=== PATIENT | male | born 1960 | race Caucasian/White ===

== ENCOUNTER → 2016-08-23 | Outpatient (CLI) | payer BC, MEDICARE ==
--- NOTE | 2016-08-23 10:43 | CT ---
EXAMINATION TYPE: CT abdomen pelvis wo con DATE OF EXAM: 08/23/2016 9:03 AM COMPARISON: 07/04/2015 INDICATION: Screening for third kidney transplant DLP: 1090 mGycm, Automated exposure control for dose reduction was used. CONTRAST: 0 mL of Omnipaque 300. Study performed with Oral Contrast TECHNIQUE: Axial images were obtained from above the diaphragm to the pubic rami in the axial plane a t 5 mm thick sections. Reconstructed images are reviewed on the computer in the coronal plane. FINDINGS: Limited CT sections are obtained the lung bases. There is pneumonitis type changes at the left lung base. This is a change from comparison.. Previous pleural effusions have resolved. CT ABDOMEN: Liver: There is a 1.2 x 3.0 cm calcified mass anterior to the right lobe of liver. This was present p reviously and appears stable. No suspicious intraparenchymal abnormalities evident. Spleen: Spleen appears enlarged measuring 17.7 cm in craniocaudal dimension. Pancreas: Normal Adrenal glands: The adrenal glands are normal. Gallbladder: Punctate gallstone is at the neck of the gallbladder. Kidneys: Left kidney is atrophic. Right kidney is absent. There is a transplant kidney within the lef t hemipelvis. This contains a 1.4 cm cyst measuring approximately 16 Hounsfield units. 0.4 cm calcifi cation is within the hilum. 0.2 and 0.3 cm calcification is within the mid transplant kidney. These c ould be related to vascular calcifications or nonobstructing renal stones. Reconstructed coronal plan e images these appear more related to vascular calcification. Some additional vascular calcification is at the splenic hilum. Perinephric stranding is present. Aorta: Vascular calcification is within the aorta. Vascular calcifications within the iliac vessels. Inferior vena cava: Normal. CT PELVIS: Sigmoid colon is somewhat thickened within its proximal portion. Correlate for colitis. Couple of div erticuli within the distal sigmoid colon. Small bowel loops distended with oral contrast are normal. Some mild wall thickening of the proximal ascending colon may be present. Transverse colon with contr ast appears unremarkable. There is a large cystic structure within the mesentery measuring 10.0 x 10.7 centimeters. This was pr esent previously and may be minimally diminished in size. Previous ascites has essentially resolved . There are loops of bowel which are incompletely distended or lack oral contrast limiting their evalu ation. Appendix: Not identified Urinary bladder: Decompressed with thickened wall can related to incomplete distention. Genitourinary structures: Prostate appears within normal limits. Osseous structures: No suspicious lytic or sclerotic lesions. Spondylolysis of bowel for may be prese nt. Facet degenerative changes are present L4-5 L5-S1. Degenerative disc changes are present L3-4. IMPRESSIONS: 1. Transplant kidney left hemipelvis with perinephric stranding. Vascular calcification appears to b e present without hydronephrosis. 2. Mesenteric cyst. 3. Resolution of previous ascites and pleural effusions. 4. Correlate for sigmoid colitis proximal portion of the sigmoid colon. 5. Punctate gallstone
== END | disposition home or self-care (01) ==
LOC: RADCTMAIN 06:53
PROVIDERS: ATTEND Nurse Practitioner Family
DX: Z01.818 Encounter for other preprocedural examination (principal); K80.20 Calculus of gallbladder without cholecystitis without obstruction; K66.8 Other specified disorders of peritoneum
CPT/HCPCS: 74176

== ENCOUNTER 2016-09-01 06:43 | Day surgery (SDC) | payer MEDICARE, BC ==
[2016-08-30 12:14] VITALS: BMI 25.0
[~2016-09-01 06:43] MED LIST: LACTATED RINGERS 1,000 ML IV SCH
[2016-09-01] MEDS ORDERED: LACTATED RINGERS 1,000 ML IV ONE (07:00)
[2016-09-01 07:13] VITALS: TEMP 97.3
[2016-09-01 07:19] LABS: Glucose,Whole Blood 141 mg/dL (75-99)
[2016-09-01] MEDS ORDERED: HYDROCORTISONE SUCCINATE 100 MG/2 ML VIAL IVP ONE (07:20)
[2016-09-01] MEDS ORDERED: HYDROCORTISONE SUCCINATE 100 MG/2 ML VIAL IV STA (07:23)
[2016-09-01] MEDS ORDERED: PROPOFOL 10 MG/ML 20 ML VIAL IV ONE (07:26)
--- NOTE | 2016-09-01 07:47 | P.PCN ---
Date of Procedure: 09/01/16 Procedure(s) Performed: BRIEF HISTORY: Patient is a 55-year-old pleasant white male, scheduled for an elective colonoscopy as a part of pretransplant kidney evaluation. He also has been complaining of change in bowel habits. He is asked coloscopy was done in 2014 and was noted to have severe medication-induced colitis. Presently the diarrhea has resolved however he has irregular bowel movements. PROCEDURE PERFORMED: Colonoscopy with biopsy. PREOPERATIVE DIAGNOSIS: Change in bowel habits and prekidney transplant evaluation. IV sedation per Anesthesia. PROCEDURE: After informed consent was obtained, the patient, was brought into the endoscopy unit. IV sedation was administered by Anesthesia under continuous monitoring. Digital rectal examination was normal. Initially the Olympus CF- 160 flexible video colonoscope was then inserted in the rectum, gradually advanced into the cecum without any difficulty. Careful examination was performed as the scope was gradually being withdrawn. Ileocecal valve and the appendiceal orifice were visualized and appeared normal. Prep was excellent. Mucosa of the cecum, ascending colon, transverse colon, appeared normal. In the descending colon there was a polyp that was removed by biopsy. The rest of the descending colon, sigmoid colon, and rectum appeared normal. Random biopsies were done from the ascending and descending colon to rule out colitis. Scattered sigmoid diverticulosis. Retroflexion was performed in the rectum and no lesions were seen. The patient tolerated the procedure well. IMPRESSION: 5 mm ascending colon polyp status post removal by biopsy. Rest of the colon appeared normal. Scattered sigmoid diverticulosis RECOMMENDATIONS: Findings of this examination were discussed with the patient as well as his family. He was advised to follow with the biopsy results. He can have a repeat colonoscopy in 5 years, based on the biopsy results.
[2016-09-01 07:50] VITALS: RESP 16
[2016-09-01 07:58] LABS: Glucose,Whole Blood 134 mg/dL (75-99)
[2016-09-01 08:16] VITALS: BP 91/53; PULSE 73
== END 2016-09-01 08:45 | disposition home or self-care (01) ==
LOC: ORWHC2ENDO 06:43
PROVIDERS: ATTEND Internal Medicine Gastroenterology
DX: Z01.818 Encounter for other preprocedural examination (principal); D12.4 Benign neoplasm of descending colon; K57.30 Diverticulosis of large intestine without perforation or abscess without bleeding; K63.89 Other specified diseases of intestine; K21.9 Gastro-esophageal reflux disease without esophagitis; Z87.891 Personal history of nicotine dependence; E11.9 Type 2 diabetes mellitus without complications; Z79.4 Long term (current) use of insulin; N28.9 Disorder of kidney and ureter, unspecified; Z79.52 Long term (current) use of systemic steroids; Z79.899 Other long term (current) drug therapy
CPT/HCPCS: 88305; 45380; J1720; J2704

== ENCOUNTER → 2018-02-06 | Outpatient (CLI) | payer MEDICARE, BC ==
--- NOTE | 2018-02-06 15:46 | US ---
EXAMINATION TYPE: US kidneys/renal and bladder DATE OF EXAM: 02/06/2018 COMPARISON: CT 2017, US 2016 CLINICAL HISTORY: Hematuria R31.0. Hematuria, [place] right left kidneys removed, transplant kidney le ft pelvis, patient states he does not make urine, patient on dialysis. EXAM MEASUREMENTS: Right Kidney: removed Left Kidney: removed Transplant Kidney: 9.2 x 7.6 x 7.9cm Right Kidney: removed Left Kidney: removed Transplant Kidney: left pelvis, 1.8cm cystic area superior pole Bladder: not distended Bilateral Jets seen: no Spleen: enlarged at 17.3cm 10.3 x 7.9 x 10.3cm cystic structure with internal echoes seen in LLQ medial to transplant kidney. IMPRESSION: 1. Transplanted kidney appears to be unremarkable. Cystic structure is noted upper pole. 2. Cystic structure noted medial to the transplanted kidney with dimensions given above. 3. Splenomegaly.
== END | disposition home or self-care (01) ==
LOC: RADUSWWP 15:11
PROVIDERS: ATTEND Internal Medicine
DX: T86.19 Other complication of kidney transplant (principal)
CPT/HCPCS: 76770

== ENCOUNTER 2024-01-31 13:23 | Inpatient (IN) | payer MEDICARE, BC ==
--- NOTE | 2024-01-31 13:33 | ED ---
Nausea/Vomiting/Diarrhea HPI - General Source: patient, RN notes reviewed Mode of arrival: ambulatory Limitations: no limitations <Bella Carrillo - Last Filed: 01/31/24 13:32> <Shaylee Zendejas - Last Filed: 01/31/24 20:04> - General Stated complaint: Abdominal Pain/Vomiting Time Seen by Provider: 01/31/24 13:32 - History of Present Illness Initial comments: Quick note: 63-year-old male presented to the ER with a chief complaint of nausea and vomiting. Patient has kidney disease and attends dialysis Tuesday. He states he was not feeling well yesterday and had his last treatment today. He also is reporting abdominal pain. He has been having the symptoms for the past 2 to 3 days. Denies any fevers, chills, diarrhea or history of bowel surgeries. Patient was in urgent care yesterday and received Zofran. (Bella Carrillo) 63-year-old male with a history of end-stage renal disease on hemodialysis Tuesday, Tuesday, Tuesday presents emergency department chief complaint of nausea and vomiting and abdominal pain. Last hemodialysis treatment was today. He states his symptoms have been present for the past 2 to 3 days. He denies fevers, chills, hematochezia, dark or tarry stools. Patient states he does not produce urine. Patient was evaluated by urgent care yesterday and was prescribed Zofran and discharged home. (Shaylee Zendejas) - Related Data Home Medications Medication Instructions Recorded Confirmed Aspirin 81 mg PO DAILY 08/30/16 01/31/24 Omeprazole 20 mg PO DAILY 08/30/16 01/31/24 Albuterol Inhaler [Ventolin Hfa 2 puff INHALATION RT-Q4H PRN 01/31/24 01/31/24 Inhaler] Albuterol Nebulized [Ventolin 2.5 mg INHALATION RT-QID 01/31/24 01/31/24 Nebulized] Calcium Acetate 668mg 2,004 mg PO TID-W/MEALS 01/31/24 01/31/24 Cinacalcet HCl [Sensipar] 60 mg PO W/SUPPER 01/31/24 01/31/24 Ondansetron Odt [Zofran Odt] 4 mg PO TID PRN 01/31/24 01/31/24 Pravastatin Sodium [Pravachol] 40 mg PO HS 01/31/24 01/31/24 Tenofovir Disoproxil Fumarate 300 mg PO FR 01/31/24 01/31/24 [Viread] Tiotropium 2.5 Mcg/Puff [Spiriva 2 puff INHALATION RT-DAILY 01/31/24 01/31/24 Respimat 2.5 Mcg] Vit B Comp No.3/Folic/C/Biotin 1 tab PO DAILY 01/31/24 01/31/24 [Blanca-Ros Rx Tablet] clonazePAM [KlonoPIN ODT] 0.25 mg PO HS PRN 01/31/24 01/31/24 Allergies Allergy/AdvReac Type Severity Reaction Status Date / Time No Known Allergies Allergy Verified 01/31/24 15:39 Review of Systems ROS Other: All systems not noted in ROS Statement are negative. <Bella Carrillo - Last Filed: 01/31/24 13:32> ROS Other: All systems not noted in ROS Statement are negative. <Shaylee Zendejas - Last Filed: 01/31/24 20:04> ROS Statement: Those systems with pertinent positive or pertinent negative responses have been documented in the HPI. Past Medical History Past Medical History: Diabetes Mellitus, GERD/Reflux, Hyperlipidemia, Hypertension, Renal Disease Additional Past Medical History / Comment(s): lt kidney transplant- remington neuropathy, hepatitis b from hemodialysis. KIDNEY TRANSPLANT X3 . HEMO DYALYSIS TU THUR SAT History of Any Multi-Drug Resistant Organisms: None Reported Past Surgical History: Hernia Repair, Tonsillectomy Additional Past Surgical History / Comment(s): colonoscopy, brian nephrectomy , then transplanted lt kidney last 2002, abd hernia repair(4); Past Anesthesia/Blood Transfusion Reactions: No Reported Reaction Past Psychological History: No Psychological Hx Reported Past Alcohol Use History: None Reported Additional Past Alcohol Use History / Comment(s): STARTED SMOKING AT AGE 16 QUIT SMOKING IN 2003 SMOKED 2PPD Past Drug Use History: None Reported - Past Family History Mother Family Medical History: No Reported History Father Additional Family Medical History / Comment(s): nerve conditon <Bella Carrillo - Last Filed: 01/31/24 13:32> General Exam <Bella Carrillo - Last Filed: 01/31/24 13:32> General appearance: alert, in no apparent distress Eye exam: Present: normal appearance, PERRL, EOMI. Absent: scleral icterus, conjunctival injection, periorbital swelling ENT exam: Present: normal exam, mucous membranes moist Neck exam: Present: normal inspection. Absent: tenderness, meningismus, lymphadenopathy Respiratory exam: Present: normal lung sounds bilaterally. Absent: respiratory distress, wheezes, rales, rhonchi, stridor Cardiovascular Exam: Present: regular rate, normal rhythm, normal heart sounds. Absent: systolic murmur, diastolic murmur, rubs, gallop, clicks GI/Abdominal exam: Present: soft, tenderness (epigastric), normal bowel sounds, mass (epigastric), other (multiple post-surgical incision sites). Absent: distended, guarding, rebound, rigid Extremities exam: Present: normal inspection, full ROM, normal capillary refill. Absent: tenderness, pedal edema, joint swelling, calf tenderness Back exam: Present: normal inspection Skin exam: Present: warm, dry, intact, normal color. Absent: rash <Shaylee Zendejas - Last Filed: 01/31/24 20:04> - General Exam Comments Initial Comments: Visual Physical Exam Vital signs reviewed General: Well-appearing, nontoxic, no acute distress. Head: Normocephalic, atraumatic Eyes: PERRLA, EOMI ENT: Airway patent Chest: Nonlabored breathing Skin: No visual rash, normal skin tone Neuro: Alert and oriented 3 Musculoskeletal: No gross abnormalities (Bella Carrillo) Course Vital Signs 01/31/24 01/31/24 13:39 17:52 Temperature 97.8 F Pulse Rate 79 90 Respiratory 18 18 Rate Blood Pressure 135/70 127/60 O2 Sat by Pulse 100 95 Oximetry Medical Decision Making <Bella Carrillo - Last Filed: 01/31/24 13:32> - Lab Data Result diagrams: 01/31/24 15:18 01/31/24 15:18 <Shaylee Zendejas - Last Filed: 01/31/24 20:04> - Medical Decision Making I performed the quick note portion of this chart. Electronically signed by Bella Carrillo PA-C (Bella Carrillo) Was pt. sent in by a medical professional or institution ([facility], METALWORKER, urgent care, hospital, or senior living...) When possible be specific @ -No Did you speak to anyone other than the patient for history (EMS, parent, family, police, friend...)? What history was obtained from this source @ -No Did you review nursing and triage notes (agree or disagree)? Why? @ -I reviewed and agree with nursing and triage notes Were old charts reviewed (outside hosp., previous admission, EMS record, old EKG, old radiological studies, urgent care reports/EKG's, senior living records)? Report findings @ -No old charts were reviewed Differential Diagnosis (chest pain, altered mental status, abdominal pain women, abdominal pain men, vaginal bleeding, weakness, fever, dyspnea, syncope, headache, dizziness, GI bleed, back pain, seizure, CVA, palpatations, mental health, musculoskeletal)? @ -Differential Abdominal Pain Men: Appendicitis, cholecystitis, diverticulosis, ischemic bowel, pancreatitis, hepatitis, UTI, gastroenteritis, AAA, incarcerated hernia, bowel obstruction, constipation, inflammatory bowel, hepatitis, peptic ulcer disease, splenic infarction, perforated viscus, testicular torsion, this is not meant to be an all-inclusive list EKG interpreted by me (3pts min.). @ -None X-rays interpreted by me (1pt min.). @ -None done CT interpreted by me (1pt min.). @ -CT of the abdomen pelvis without IV contrast reveals calcified wheatley with a fluid collection within the left lung base regression of wall calcifications with kidney transplant without hydronephrosis and nonspecific small bowel loops, possible ileus and partial small bowel obstruction U/S interpreted by me (1pt. min.). @ -None done What testing was considered but not performed or refused? (CT, X-rays, U/S, labs)? Why? @ -None What meds were considered but not given or refused? Why? @ -None Did you discuss the management of the patient with other professionals (professionals i.e. Y[facility] Hanna, METALWORKER, lab, RT, psych nurse, social work faculty member, singe machine operator, teacher, title officer, mental health case manager)? Give summary @ -Spoke with nurse practitioner with [facility], Kiara Meza, in regard to the patient's presentation and CT scan concerning for small bowel obstruction versus an ileus. Patient will be admitted to internal medicine with nephrology on consult and general surgery Was smoking cessation discussed for >3mins.? @ -No Was critical care preformed (if so, how long)? @ -No Were there social determinants of health that impacted care today? How? (Homelessness, low income, unemployed, alcoholism, drug addiction, transportation, low edu. Level, literacy, decrease access to med. care, nursing home, rehab)? @ -No Was there de-escalation of care discussed even if they declined (Discuss DNR or withdrawal of care, Hospice)? DNR status @ -No What co-morbidities impacted this encounter? (DM, HTN, Smoking, COPD, CAD, Cancer, CVA, ARF, Chemo, Hep., AIDS, mental health diagnosis, sleep apnea, morbid obesity)? @ -None Was patient admitted / discharged? Hospital course, mention meds given and route, prescriptions, significant lab abnormalities, going to OR and other pertinent info. @ -Admitted. 63-year-old male with abdominal pain, nausea and vomiting. Patient was originally evaluated as a quick note where laboratory studies were o rdered. On my evaluation of the patient he is resting comfortably no signs of acute distress. Abdominal examination reveals epigastric tenderness and palpable mass. Patient states that mass of his abdomen has been present over the past 10 to 12 years. He is symptomatically treated with antiemetics and pain medication pending CT imaging results. He is agree with this plan. CBC unremarkable, CMP feels hyperkalemia of 5.7, acidosis with a chloride of 89 and CO2 of 33, elevated BUN at 37 creatinine 7.16 consistent with patient's chronic kidney disease, amylase and lipase within normal limits. CT concerning for nonspecific small bowel loops with ileus or partial small bowel obstruction. Patient will be admitted to internal medicine with nephrology and general surgery on consult and will continue with liquid diet. Additionally he is provided with a 500 mL fluid bolus due to elevated serum creatinine and electrolyte imbalance and will not be continued on maintenance therapy due to patient being on end-stage renal disease and would not like to fluid over the patient. Discussed with my attending Dr. Tuttle. Undiagnosed new problem with uncertain prognosis? @ -No Drug Therapy requiring intensive monitoring for toxicity (Heparin, Nitro, Insulin, Cardizem)? @ -No Were any procedures done? @ -No Diagnosis/symptom? @ -Small bowel obstruction versus ileus, end-stage renal disease on hemodialysis Acute, or Chronic, or Acute on Chronic? @ -acute Uncomplicated (without systemic symptoms) or Complicated (systemic symptoms)? @ -Complicated Side effects of treatment? @ -No Exacerbation, Progression, or Severe Exacerbation? @ -No Poses a threat to life or bodily function? How? (Chest pain, USA, ND, pneumonia, PE, COPD, DKA, ARF, appy, cholecystitis, CVA, Diverticulitis, Homicidal, Suicidal, threat to staff... and all critical care pts) @ -No (Shaylee Zendejas) - Lab Data Lab Results 01/31/24 01/31/24 01/31/24 Range/Units 15:18 15:18 15:18 WBC 5.2 (3.8-10.6) k/uL RBC 4.82 (4.30-5.90) m/uL Hgb 14.5 (13.0-17.5) gm/dL Hct 45.1 (39.0-53.0) % MCV 93.6 (80.0-100.0) fL MCH 30.2 (25.0-35.0) pg MCHC 32.2 (31.0-37.0) g/dL RDW 14.5 (11.5-15.5) % Plt Count 203 (150-450) k/uL MPV 7.2 Neutrophils % 83 % Lymphocytes % 9 % Monocytes % 5 % Eosinophils % 1 % Basophils % 0 % Neutrophils # 4.3 (1.3-7.7) k/uL Lymphocytes # 0.5 L (1.0-4.8) k/uL Monocytes # 0.3 (0-1.0) k/uL Eosinophils # 0.1 (0-0.7) k/uL Basophils # 0.0 (0-0.2) k/uL Sodium 138 (137-145) mmol/L Potassium 5.7 H (3.5-5.1) mmol/L Chloride 89 L (98-107) mmol/L Carbon Dioxide 33 H (22-30) mmol/L Anion Gap 16 mmol/L BUN 37 H (9-20) mg/dL Creatinine 7.16 H* (0.66-1.25) mg/dL Est GFR (CKD-EPI)AfAm 9 (>60 ml/min/1.73 sqM) Est GFR (CKD-EPI)NonAf 7 (>60 ml/min/1.73 sqM) Glucose 180 H (74-99) mg/dL Plasma Lactic Acid Armond 1.8 (0.7-2.0) mmol/L Calcium 10.7 H (8.4-10.2) mg/dL Total Bilirubin 1.4 H (0.2-1.3) mg/dL AST 19 (17-59) U/L ALT 14 (4-49) U/L Alkaline Phosphatase 121 (38-126) U/L Total Protein 8.8 H (6.3-8.2) g/dL Albumin 5.1 H (3.5-5.0) g/dL Amylase 78 (30-110) U/L Lipase 187 (23-300) U/L Disposition <Bella Carrillo - Last Filed: 01/31/24 13:32> Is patient prescribed a controlled substance at d/c from ED?: No Decision to Admit Reason: Admit from EC Decision Date: 01/31/24 Decision Time: 18:21 <Shaylee Zendejas - Last Filed: 01/31/24 20:04> Clinical Impression: Abdominal pain, Small bowel obstruction Disposition: ADMITTED IP TO THIS [facility] Condition: Stable
[2024-01-31 15:28] LABS: Basophils % (A) 0 %; Eosinophils # (A) 0.1 k/uL (0-0.7); Eosinophils % (A) 1 %; HCT 45.1 % (39.0-53.0); HGB 14.5 gm/dL (13.0-17.5); Lymphocytes # (A) 0.5 k/uL (1.0-4.8); Lymphocytes % (A) 9 %; MCH 30.2 pg (25.0-35.0); MCHC 32.2 g/dL (31.0-37.0); MCV 93.6 fL (80.0-100.0); Mean Platelet Volume 7.2; Monocytes # (A) 0.3 k/uL (0-1.0); Monocytes % (A) 5 %; Neutrophils # (A) 4.3 k/uL (1.3-7.7); Neutrophils % (A) 83 %; Platelet Count 203 k/uL (150-450); RBC 4.82 m/uL (4.30-5.90); RDW 14.5 % (11.5-15.5); WBC 5.2 k/uL (3.8-10.6)
[2024-01-31] MEDS: SODIUM CHLORIDE 0.9% 1,000 ML IV STA (15:43)
[2024-01-31 15:54] LABS: ALT 14 U/L (4-49); AST 19 U/L (17-59); African American GFR (CKD) 9 (>60 ml/min/1.73 sqM); Albumin 5.1 g/dL (3.5-5.0); Alkaline Phosphatase 121 U/L (38-126); Amylase 78 U/L (30-110); Anion Gap 16 mmol/L; Blood Urea Nitrogen 37 mg/dL (9-20); Calcium 10.7 mg/dL (8.4-10.2); Carbon Dioxide 33 mmol/L (22-30); Chloride 89 mmol/L (98-107); Glucose 180 mg/dL (74-99); Lipase 187 U/L (23-300); Non-African American GFR(CKD) 7 (>60 ml/min/1.73 sqM); Potassium 5.7 mmol/L (3.5-5.1); Sodium 138 mmol/L (137-145); Total Bilirubin 1.4 mg/dL (0.2-1.3); Total Protein 8.8 g/dL (6.3-8.2)
[2024-01-31] MEDS: MORPHINE SULFATE 4 MG/ML SYRINGE IVP STA (16:45)
--- NOTE | 2024-01-31 17:52 | CT ---
EXAMINATION TYPE: CT abdomen pelvis wo con DATE OF EXAM: 01/31/2024 COMPARISON: INDICATION: ab pain, nausea and vomiting DLP: 569.5 mGycm, Automated exposure control for dose reduction was used. CONTRAST: 0 mL of Isovue 300. Study performed without Oral Contrast TECHNIQUE: Axial images were obtained from above the diaphragm to the pubic rami in the axial plane a t 5 mm thick sections. Reconstructed images are reviewed on the computer in the coronal plane. FINDINGS: Limited CT sections are obtained the lung bases. There is a loculated effusion in the posterior late ral left lung base. This has adjacent pleural calcification. This is incompletely evaluated. Minimal atelectasis posterior right lung base. . CT ABDOMEN: There is calcification lateral to the right hepatic border. This was present previously a nd currently measures 3.4 x 2.2 cm. Previous measurement 3.0 x 1.2 cm. There is a calcified collectio n in the mid abdomen Liver: Normal Spleen: Normal Pancreas: Normal Adrenal glands: The adrenal glands are normal. Gallbladder: Normal Kidneys: Left kidney severely atrophic. Right kidney not identified. There is a left hemipelvis pancr eas is may be a transplant kidney. There are multiple nonobstructing renal stones within this transpl anted kidney. No hydronephrosis is evident.. Aorta: Vascular calcification is within the aorta. There is some fusiform prominence of ther proxima l common right iliac artery measuring 3.3 cm in diameter. Inferior vena cava: Normal. CT PELVIS: Femorofemoral bypass graft is evident. There is a fluid collection in the left inguinal re gion which is adjacent to the femoral bypass. Hematoma or seroma could be considered. Correlate for i nfection. Abscess is considered less likely. Racquetball: Scattered diverticuli to the sigmoid colon. Small bowel loops within the midabdomen have some fecal debris. These loops are also dilated and has some fluid present. The obstruction however is not identified. Appendix: Not identified. No dilated tubular structure or inflammatory changes are evident. Urinary bladder: Decompressed and cannot be evaluated. Genitourinary structures: Minimal prominence of the prostate Osseous structures: No suspicious lytic or sclerotic lesions. Degenerative changes within the lumbar spine. IMPRESSION: 1. There are several collections with calcified wheatley including a fluid collection within the left l kandice base, intermediate calcified rim collection within the mid pelvis. A calcified collection lateral to the liver which was present previously. There appears to be progression of the wall calcification s. 2. Suspected transplant kidney without hydronephrosis left hemipelvis. Multiple nonobstructing renal stones are present. 3. Nonspecific prominent small bowel loops with fluid and some fecal debris. Correlate for ileus and partial small bowel obstruction. Zone of transition is not identified. [facility], , 01/31/2024 5:50 PM
[2024-01-31] MEDS ORDERED: NALOXONE 0.4 MG/ML 1 ML VIAL IV PRN (18:21)
[2024-01-31] MEDS ORDERED: ALBUTEROL HFA INHALER INHALATION PRN (18:26)
[2024-01-31] MEDS ORDERED: clonazePAM 0.5 MG TAB PO PRN (18:26)
[2024-01-31] MEDS: SODIUM CHLORIDE 0.9% 500 ML 500 ML IV STA (18:31)
[2024-01-31] MEDS: METOCLOPRAMIDE 5 MG/ML 2 ML VIAL IVP STA (18:32)
[2024-01-31] MEDS: ALBUTEROL NEBULIZED 2.5 MG/3 ML INHALATION SCH (20:27)
[2024-01-31] MEDS: PRAVASTATIN SODIUM 40 MG TAB PO SCH (21:09)
[2024-01-31] MEDS: ACETAMINOPHEN TAB 325 MG TAB PO PRN (21:09)
[2024-02-01] MEDS: ONDANSETRON 4 MG/2 ML VIAL IVP PRN (00:25)
[2024-02-01] MEDS: HYDROcodone/APAP 5-325MG 1 EACH TAB PO PRN (01:03)
[2024-02-01] MEDS: PANTOPRAZOLE 40 MG TABLET PO SCH (06:23)
[2024-02-01] MEDS ORDERED: CALCIUM ACETATE 667 MG TAB PO SCH (07:30)
[2024-02-01] MEDS: FOLIC ACID-VIT B COMPLEX-VIT C 1 CAP PO SCH (08:29)
[2024-02-01] MEDS: ASPIRIN 81 MG PO SCH (08:29)
[2024-02-01 09:08] LABS: Basophils # (A) 0.01 X 10*3/uL (0.00-0.10); Basophils % (A) 0.2 %; Eosinophils # (A) 0.01 X 10*3/uL (0.04-0.35); Eosinophils % (A) 0.2 %; HCT 35.9 % (37.2-50.0); HGB 11.5 g/dL (12.0-17.0); Lymphocytes # (A) 0.56 X 10*3/uL (0.90-5.00); MCH 29.9 pg (27.0-32.0); MCV 93.2 FL (80.0-97.0); Monocytes # (A) 0.73 X 10*3/uL (0.20-1.00); Monocytes % (A) 11.7 %; NRBC Per 100 WBC 0 X 10*3/uL (0.00-0.01); Neutrophils # (A) 4.89 X 10*3/uL (1.80-7.70); Neutrophils % (A) 78.4 %; Platelet Count 166 X 10*3/uL (140-440); RBC 3.85 X 10*6/uL (4.10-5.60); RDW 14.7 % (11.5-14.5); WBC 6.23 X 10*3/uL (4.50-10.00)
[2024-02-01 09:30] LABS: ALT 10 U/L (8-49); AST 11 U/L (13-35); Albumin 3.9 g/dL (3.8-4.9); Albumin/Globulin Ratio 1.56 Ratio (1.60-3.17); Alkaline Phosphatase 99 U/L (41-126); BUN/Creat Ratio 5.92 Ratio (12.00-20.00); Blood Urea Nitrogen 46.8 mg/dL (9.0-27.0); Calcium 9.2 mg/dL (8.7-10.3); Carbon Dioxide 26.3 mmol/L (21.6-31.8); Chloride 91 mmol/L (96-109); Globulin 2.5 g/dL (1.6-3.3); Glucose 126 mg/dL (70-110); Potassium 5.7 mmol/L (3.5-5.5); Sodium 137 mmol/L (135-145); Total Protein 6.4 g/dL (6.2-8.2)
--- NOTE | 2024-02-01 12:17 | P.GSCN ---
History of Present Illness Consult date: 02/01/24 History of present illness: 63-year-old male presented to the emergency department with complaint of abdominal cramping and nausea and vomiting. He states his last bowel movement was about 4 days ago. He does have history of end-stage renal disease and is dialysis dependent. He does have history of renal transplant as well. He has had multiple abdominal surgeries. CT of the abdomen and pelvis was performed with concerning findings of dilated small bowel and ileus versus partial small bowel obstruction. Review of Systems All systems: negative Past Medical History Past Medical History: GERD/Reflux, Hyperlipidemia, Hypertension, Renal Disease Additional Past Medical History / Comment(s): lt kidney transplant- remington neuropathy, hepatitis b from hemodialysis. KIDNEY TRANSPLANT X3 . HEMO DYALYSIS MON Tue History of Any Multi-Drug Resistant Organisms: None Reported Past Surgical History: Hernia Repair, Tonsillectomy Additional Past Surgical History / Comment(s): colonoscopy, brian nephrectomy , then transplanted lt kidney last 2002, abd hernia repair(4); Past Anesthesia/Blood Transfusion Reactions: No Reported Reaction Past Psychological History: No Psychological Hx Reported Smoking Status: Former smoker Past Alcohol Use History: None Reported Additional Past Alcohol Use History / Comment(s): STARTED SMOKING AT AGE 16 QUIT SMOKING IN 2003 SMOKED 2PPD Past Drug Use History: None Reported - Past Family History Mother Family Medical History: No Reported History Father Additional Family Medical History / Comment(s): nerve conditon Medications and Allergies Home Medications Medication Instructions Recorded Confirmed Type Aspirin 81 mg PO DAILY 08/30/16 01/31/24 History Omeprazole 20 mg PO DAILY 08/30/16 01/31/24 History Albuterol Inhaler [Ventolin Hfa 2 puff INHALATION RT-Q4H PRN 01/31/24 01/31/24 History Inhaler] Albuterol Nebulized [Ventolin 2.5 mg INHALATION RT-QID 01/31/24 01/31/24 History Nebulized] Calcium Acetate 668mg 2,004 mg PO TID-W/MEALS 01/31/24 01/31/24 History Cinacalcet HCl [Sensipar] 60 mg PO W/SUPPER 01/31/24 01/31/24 History Ondansetron Odt [Zofran Odt] 4 mg PO TID PRN 01/31/24 01/31/24 History Pravastatin Sodium [Pravachol] 40 mg PO HS 01/31/24 01/31/24 History Tenofovir Disoproxil Fumarate 300 mg PO FR 01/31/24 01/31/24 History [Viread] Tiotropium 2.5 Mcg/Puff [Spiriva 2 puff INHALATION RT-DAILY 01/31/24 01/31/24 History Respimat 2.5 Mcg] Vit B Comp No.3/Folic/C/Biotin 1 tab PO DAILY 01/31/24 01/31/24 History [Blanca-Ros Rx Tablet] clonazePAM [KlonoPIN ODT] 0.25 mg PO HS PRN 01/31/24 01/31/24 History Allergies Allergy/AdvReac Type Severity Reaction Status Date / Time No Known Allergies Allergy Verified 01/31/24 15:39 Surgical - Exam Osteopathic Statement: *. No significant issues noted on an osteopathic str uctural exam other than those noted in the History and Physical/Consult. Vital Signs Temp Pulse Resp BP Pulse Ox 97.8 F 79 18 135/70 100 01/31/24 13:39 01/31/24 13:39 01/31/24 13:39 01/31/24 13:39 01/31/24 13:39 - General well nourished, no distress - Eyes normal ocular movement - ENT no hearing loss - Neck trachea midline - Abdomen Soft, well-healed surgical scarring, nondistended, no rebound or guarding, tenderness to palpation in bilateral lower quadrants - Psychiatric oriented to time, oriented to person, oriented to place Results - Labs 02/01/24 03:14 02/01/24 03:14 Abnormal Lab Results - Last 24 Hours (Table) 01/31/24 01/31/24 02/01/24 Range/Units 15:18 15:18 03:14 RBC 3.85 L (4.10-5.60) X 10*6/uL Hgb 11.5 L (12.0-17.0) g/dL Hct 35.9 L (37.2-50.0) % RDW 14.7 H (11.5-14.5) % Lymphocytes # 0.5 L 0.56 L (1.0-4.8) k/uL Eosinophils # 0.01 L (0.04-0.35) X 10*3/uL Potassium 5.7 H (3.5-5.1) mmol/L Chloride 89 L (98-107) mmol/L Carbon Dioxide 33 H (22-30) mmol/L Anion Gap (4.00-12.00) mmol/L BUN 37 H (9-20) mg/dL Creatinine 7.16 H* (0.66-1.25) mg/dL Est GFR (CKD-EPI) (>=60) BUN/Creatinine Ratio (12.00-20.00) Ratio Glucose 180 H (74-99) mg/dL Calcium 10.7 H (8.4-10.2) mg/dL Total Bilirubin 1.4 H (0.2-1.3) mg/dL AST (13-35) U/L Total Protein 8.8 H (6.3-8.2) g/dL Albumin 5.1 H (3.5-5.0) g/dL Albumin/Globulin Ratio (1.60-3.17) Ratio // Range/Units 03:14 RBC (4.10-5.60) X 10*6/uL Hgb (12.0-17.0) g/dL Hct (37.2-50.0) % RDW (11.5-14.5) % Lymphocytes # (1.0-4.8) k/uL Eosinophils # (0.04-0.35) X 10*3/uL Potassium 5.7 H (3.5-5.1) mmol/L Chloride 91 L (98-107) mmol/L Carbon Dioxide (22-30) mmol/L Anion Gap 19.70 H (4.00-12.00) mmol/L BUN 46.8 H (9-20) mg/dL Creatinine 7.9 A* (0.66-1.25) mg/dL Est GFR (CKD-EPI) 7 L (>=60) BUN/Creatinine Ratio 5.92 L (12.00-20.00) Ratio Glucose 126 H (74-99) mg/dL Calcium (8.4-10.2) mg/dL Total Bilirubin (0.2-1.3) mg/dL AST 11 L (13-35) U/L Total Protein (6.3-8.2) g/dL Albumin (3.5-5.0) g/dL Albumin/Globulin Ratio 1.56 L (1.60-3.17) Ratio Diabetes panel 01/31/24 02/01/24 Range/Units 15:18 03:14 Sodium 138 137 (137-145) mmol/L Potassium 5.7 H 5.7 H (3.5-5.1) mmol/L Chloride 89 L 91 L (98-107) mmol/L Carbon Dioxide 33 H 26.3 (22-30) mmol/L BUN 37 H 46.8 H (9-20) mg/dL Creatinine 7.16 H* 7.9 A* (0.66-1.25) mg/dL Glucose 180 H 126 H (74-99) mg/dL Calcium 10.7 H 9.2 (8.4-10.2) mg/dL AST 19 11 L (17-59) U/L ALT 14 10 (4-49) U/L Alkaline Phosphatase 121 99 (38-126) U/L Total Protein 8.8 H 6.4 (6.3-8.2) g/dL Albumin 5.1 H 3.9 (3.5-5.0) g/dL Calcium panel 01/31/24 02/01/24 Range/Units 15:18 03:14 Calcium 10.7 H 9.2 (8.4-10.2) mg/dL Albumin 5.1 H 3.9 (3.5-5.0) g/dL Pituitary panel 01/31/24 02/01/24 Range/Units 15:18 03:14 Sodium 138 137 (137-145) mmol/L Potassium 5.7 H 5.7 H (3.5-5.1) mmol/L Chloride 89 L 91 L (98-107) mmol/L Carbon Dioxide 33 H 26.3 (22-30) mmol/L BUN 37 H 46.8 H (9-20) mg/dL Creatinine 7.16 H* 7.9 A* (0.66-1.25) mg/dL Glucose 180 H 126 H (74-99) mg/dL Calcium 10.7 H 9.2 (8.4-10.2) mg/dL Adrenal panel 01/31/24 02/01/24 Range/Units 15:18 03:14 Sodium 138 137 (137-145) mmol/L Potassium 5.7 H 5.7 H (3.5-5.1) mmol/L Chloride 89 L 91 L (98-107) mmol/L Carbon Dioxide 33 H 26.3 (22-30) mmol/L BUN 37 H 46.8 H (9-20) mg/dL Creatinine 7.16 H* 7.9 A* (0.66-1.25) mg/dL Glucose 180 H 126 H (74-99) mg/dL Calcium 10.7 H 9.2 (8.4-10.2) mg/dL Total Bilirubin 1.4 H 1.0 (0.2-1.3) mg/dL AST 19 11 L (17-59) U/L ALT 14 10 (4-49) U/L Alkaline Phosphatase 121 99 (38-126) U/L Total Protein 8.8 H 6.4 (6.3-8.2) g/dL Albumin 5.1 H 3.9 (3.5-5.0) g/dL Assessment and Plan Plan: 63-year-old male with concern for small bowel obstruction, partial versus ileus. We will attain a small bowel follow-through study for further evaluation of obstructive process. Nephrology recommendations on patient's elevated creatinine and dialysis regimen. Further recommendations based on patient's imaging findings.
[2024-02-01] MEDS: TIOTROPIUM 2.5 MCG INHALER INHALATION SCH (13:02)
--- NOTE | 2024-02-01 13:21 | P.NPCON ---
History of Present Illness - Reason for Consult end stage renal disease - History of Present Illness Reason for consultation: End-stage renal disease History of present is: Patient is a 63-year-old male seen in renal consultation for end-stage renal disease. He is maintained on hemodialysis on Tuesday schedule. Patient came to the hospital due to abdominal cramping that began Tuesday morning. Patient states he went camping over the weekend and did not feel well. Has been having vomiting and not been able to keep much food down. Patient does have history of coronary disease as well as peripheral vascular disease. Denies history of diabetes. Patient makes no urine. Patient states he missed hemodialysis treatment Tuesday but did have a treatment yesterday. CT of the abdomen and pelvis showed ileus versus partial small bowel obstruction. Several calcified wheatley in the lungs and mid pelvis were noted. He is being followed by surgery. Small bowel follow-through studies pending. Vital signs are stable. General: No acute distress. HEENT: Head exam is unremarkable. On room air. LUNGS: No audible rhonchi or wheezes. HEART: Tachycardic. ABDOMEN: Generalized tenderness present. EXTREMITITES: No edema. Past Medical History Past Medical History: GERD/Reflux, Hyperlipidemia, Hypertension, Renal Disease Additional Past Medical History / Comment(s): lt kidney transplant- remington neuropathy, hepatitis b from hemodialysis. KIDNEY TRANSPLANT X3 . HEMO DYALYSIS Tue History of Any Multi-Drug Resistant Organisms: None Reported Past Surgical History: Hernia Repair, Tonsillectomy Additional Past Surgical History / Comment(s): colonoscopy, brian nephrectomy , then transplanted lt kidney last 2002, abd hernia repair(4); Past Anesthesia/Blood Transfusion Reactions: No Reported Reaction Past Psychological History: No Psychological Hx Reported Smoking Status: Former smoker Past Alcohol Use History: None Reported Additional Past Alcohol Use History / Comment(s): STARTED SMOKING AT AGE 16 QUIT SMOKING IN 2003 SMOKED 2PPD Past Drug Use History: None Reported - Past Family History Mother Family Medical History: No Reported History Father Additional Family Medical History / Comment(s): nerve conditon Medications and Allergies Home Medications Medication Instructions Recorded Confirmed Type Aspirin 81 mg PO DAILY 08/30/16 01/31/24 History Omeprazole 20 mg PO DAILY 08/30/16 01/31/24 History Albuterol Inhaler [Ventolin Hfa 2 puff INHALATION RT-Q4H PRN 01/31/24 01/31/24 History Inhaler] Albuterol Nebulized [Ventolin 2.5 mg INHALATION RT-QID 01/31/24 01/31/24 History Nebulized] Calcium Acetate 668mg 2,004 mg PO TID-W/MEALS 01/31/24 01/31/24 History Cinacalcet HCl [Sensipar] 60 mg PO W/SUPPER 01/31/24 01/31/24 History Ondansetron Odt [Zofran Odt] 4 mg PO TID PRN 01/31/24 01/31/24 History Pravastatin Sodium [Pravachol] 40 mg PO HS 01/31/24 01/31/24 History Tenofovir Disoproxil Fumarate 300 mg PO FR 01/31/24 01/31/24 History [Viread] Tiotropium 2.5 Mcg/Puff [Spiriva 2 puff INHALATION RT-DAILY 01/31/24 01/31/24 History Respimat 2.5 Mcg] Vit B Comp No.3/Folic/C/Biotin 1 tab PO DAILY 01/31/24 01/31/24 History [Blanca-Ros Rx Tablet] clonazePAM [KlonoPIN ODT] 0.25 mg PO HS PRN 01/31/24 01/31/24 History Allergies Allergy/AdvReac Type Severity Reaction Status Date / Time No Known Allergies Allergy Verified 01/31/24 15:39 Physical Exam Vitals: Vital Signs Temp Pulse Pulse Resp BP BP Pulse Ox 02/01/24 13:06 104 H 02/01/24 12:56 100 02/01/24 08:02 104 H 02/01/24 07:51 104 H 02/01/24 07:13 98.9 F 101 H 18 88/54 90 L 02/01/24 01:01 99.9 F H 107 H 18 106/63 93 L 01/31/24 20:46 98.5 F 107 H 17 122/47 98 01/31/24 20:37 101 H 01/31/24 20:28 97 01/31/24 20:17 101 H 18 107/70 95 01/31/24 17:52 90 18 127/60 95 01/31/24 13:39 97.8 F 79 18 135/70 100 Intake and Output 01/31/24 02/01/24 02/01/24 22:59 06:59 14:59 Other: Voiding Method Toilet Weight 83.007 kg Results - Lab Results Most recent lab results Calcium 9.2 mg/dL (8.7-10.3) 02/01/24 03:14 02/01/24 03:14 02/01/24 03:14 Assessment and Plan Plan: Assessment: 1. End-stage renal disease maintained on hemodialysis on Tuesday schedule. 2. Abdominal pain due to ileus versus bowel obstruction. Surgery following. 3. Coronary disease with cardiac stenting. 4. Peripheral vascular disease status post surgical invention in the past. Patient follows with vascular surgery from [facility]. 5. Chronic kidney disease mineral bone disease maintained on Sensipar and PhosLo outpatient. 6. History of hepatitis B maintained on tenofovir. 7. Hyperkalemia secondary to chronic kidney disease. Plan: Hemodialysis today per his outpatient schedule. Follow-up small bowel follow-through. Hold PhosLo and Sensipar at this time. Thank you for the consultation. I will continue to follow the patient with you during his hospital stay.
[2024-02-01] MEDS ORDERED: ONDANSETRON 4 MG/2 ML VIAL IVP PRN (14:08)
[2024-02-01] MEDS: HEPARIN SODIUM,PORCINE 5,000 UNIT/ML 1 ML VIAL SQ SCH (14:09)
[2024-02-01] MEDS: HYDROmorphone 0.5 MG/0.5 ML SYRINGE IVP PRN (14:09)
--- NOTE | 2024-02-01 14:14 | P.PN ---
Progress Note - Text Progress Note Date: 02/01/24 Patient in the process of undergoing a small bowel follow-through test. I was notified by radiology service that at the 3-hour candy contrast is remaining in the stomach and patient is vomiting. They are concerned for possible aspiration and recommending NG tube placement. Agreeable with NG tube placement. NG tube has been ordered. Radiology does intend to continue further imaging. Zofran dosage changed to every 6 hours as needed for nausea.
--- NOTE | 2024-02-01 15:02 | XR ---
EXAMINATION TYPE: XR chest 1V confirm line [facility] DATE OF EXAM: 02/01/2024 COMPARISON: 11/12/2014 INDICATION: Nasogastric tube placement TECHNIQUE: Single frontal view of the chest is obtained. FINDINGS: The heart size is normal. The pulmonary vasculature is normal. There is an infiltrate in the left lower lobe. Small amount left pleural fluid may be present. Nasogastric tube transverses the thorax. Tip appears to be within the left upper quadrant p.m. poorly visualized due to penetration. IMPRESSION: 1. Left lower lobe infiltrate with small left pleural effusion. Nasogastric tube transverses the thor ax. [facility], , 02/01/2024 3:00 PM
[2024-02-01] MEDS: MIDODRINE 5 MG TAB PO SCH (16:19)
[2024-02-01] MEDS: MIDODRINE 5 MG TAB PO STA (16:19)
[2024-02-01] MEDS ORDERED: CINACALCET 30 MG TAB PO SCH (17:30)
[2024-02-01 17:39] LABS: ALT 12 U/L (4-49); AST 15 U/L (17-59); African American GFR (CKD) 6 (>60 ml/min/1.73 sqM); Alkaline Phosphatase 86 U/L (38-126); Anion Gap 19 mmol/L; Blood Urea Nitrogen 65 mg/dL (9-20); Calcium 9.4 mg/dL (8.4-10.2); Carbon Dioxide 29 mmol/L (22-30); Chloride 88 mmol/L (98-107); Glucose 153 mg/dL (74-99); Non-African American GFR(CKD) 5 (>60 ml/min/1.73 sqM); Potassium 5.8 mmol/L (3.5-5.1); Sodium 136 mmol/L (137-145); Total Bilirubin 1.8 mg/dL (0.2-1.3); Total Protein 6.7 g/dL (6.3-8.2)
--- NOTE | 2024-02-01 18:02 | P.CNPUL ---
History of Present Illness Consult date: 02/01/24 Chief complaint: Hypotension, small bowel obstruction History of present illness: This is a 63-year-old male patient who got transferred to the ICU because of hypotension. The patient is admitted currently for small bowel obstruction. The patient is known to have end-stage renal disease on hemodialysis and his last hemodialysis session was yesterday. He gets dialyzed MWF. He has had previous kidney transplantation and has essentially failed. He has had previous surgeries in his abdomen for transplantation. He presented to the hospital because of abdominal pain, cramping, nausea and emesis and his last bowel movement was around 4 days ago. CAT scan of the abdomen showed dilated small bowel consistent with ileus/small bowel obstruction. General surgery is on the case. Because of ongoing discomfort, NG tube was inserted and immediately approximately 2 L of gastric material was aspirated. Subsequently patient became hypotensive. He starts cardiac blood pressure is was in the mid 70s. He got transferred to the ICU. Given half a liter of normal saline and the current blood pressure is 113/61. He is awake and alert. He is currently on room air oxygen with a pulse ox of 99%. No significant tachycardia. No reported fever. The white cell count is at 6.2 with a hemoglobin of 11.5 and a platelet count of 166. BUN 65 with a creatinine of 9.7 and the patient's potassium level is at 5.8 and a sodium level of 136. Amylase and lipase are within normal limits. LFTs are within normal limits. CAT scan of the abdomen also showed a loculated pleural effusion in the left lung base above the left hemidiaphragm with a ca lcified rim which is a sequelae of previous pneumonia/parapneumonic effusion. He has another calcified rim collection in the mid pelvis. Denies having any cough or sputum production. No significant respiratory distress. Review of Systems Constitutional: Denies chills, Denies fever Eyes: denies as per HPI, denies blurred vision, denies bulging eye, denies decreased vision, denies diplopia, denies discharge, denies dry eye, denies irritation, denies itching, denies pain, denies photophobia, denies loss of peripheral vision, denies loss of vision, denies tunnel vision/blind spots Ears: deny: decreased hearing, ear discharge, earache, tinnitus Ears, nose, mouth and throat: Reports as per HPI Breasts: absent: as per HPI, gynecomastia Respiratory: Reports as per HPI Gastrointestinal: Reports abdominal pain, Reports nausea, Reports vomiting Genitourinary: Reports as per HPI Musculoskeletal: Reports as per HPI Musculoskeletal: absent: ankle pain, ankle stiffness, ankle swelling, as per HPI, elbow pain, elbow stiffness, elbow swelling, foot pain, foot stiffness, foot swelling, hand pain, hand stiffness, hand swelling, hip pain, hip stiffness, hip swelling, knee pain, knee stiffness, knee swelling, shoulder pain, shoulder stiffness, shoulder swelling, wrist pain, wrist stiffness, wrist swelling Integumentary: Reports as per HPI Neurological: Reports as per HPI Psychiatric: Reports as per HPI Endocrine: Reports as per HPI Hematologic/Lymphatic: Reports as per HPI Allergic/Immunologic: Reports as per HPI Past Medical History Past Medical History: COPD, GERD/Reflux, Hyperlipidemia, Hypertension, Renal Disease Additional Past Medical History / Comment(s): lt kidney transplant- remington neuropathy, hepatitis b from hemodialysis. KIDNEY TRANSPLANT X3 . HEMO DYALYSIS MON Tue History of Any Multi-Drug Resistant Organisms: None Reported Past Surgical History: Hernia Repair, Tonsillectomy Additional Past Surgical History / Comment(s): colonoscopy, brian nephrectomy , then transplanted lt kidney last 2002, abd hernia repair(4); Past Anesthesia/Blood Transfusion Reactions: No Reported Reaction Past Psychological History: No Psychological Hx Reported Smoking Status: Former smoker Past Alcohol Use History: None Reported Additional Past Alcohol Use History / Comment(s): STARTED SMOKING AT AGE 16 QUIT SMOKING IN 2003 SMOKED 2PPD Past Drug Use History: None Reported - Past Family History Mother Family Medical History: No Reported History Father Additional Family Medical History / Comment(s): nerve conditon Medications and Allergies Home Medications Medication Instructions Recorded Confirmed Type Aspirin 81 mg PO DAILY 08/30/16 01/31/24 History Omeprazole 20 mg PO DAILY 08/30/16 01/31/24 History Albuterol Inhaler [Ventolin Hfa 2 puff INHALATION RT-Q4H PRN 01/31/24 01/31/24 History Inhaler] Albuterol Nebulized [Ventolin 2.5 mg INHALATION RT-QID 01/31/24 01/31/24 History Nebulized] Calcium Acetate 668mg 2,004 mg PO TID-W/MEALS 01/31/24 01/31/24 History Cinacalcet HCl [Sensipar] 60 mg PO W/SUPPER 01/31/24 01/31/24 History Ondansetron Odt [Zofran Odt] 4 mg PO TID PRN 01/31/24 01/31/24 History Pravastatin Sodium [Pravachol] 40 mg PO HS 01/31/24 01/31/24 History Tenofovir Disoproxil Fumarate 300 mg PO FR 01/31/24 01/31/24 History [Viread] Tiotropium 2.5 Mcg/Puff [Spiriva 2 puff INHALATION RT-DAILY 01/31/24 01/31/24 History Respimat 2.5 Mcg] Vit B Comp No.3/Folic/C/Biotin 1 tab PO DAILY 01/31/24 01/31/24 History [Blanca-Ros Rx Tablet] clonazePAM [KlonoPIN ODT] 0.25 mg PO HS PRN 01/31/24 01/31/24 History Allergies Allergy/AdvReac Type Severity Reaction Status Date / Time No Known Allergies Allergy Verified 01/31/24 15:39 Physical Exam Vitals: Vital Signs Temp Pulse Pulse Resp BP BP Pulse Ox 02/01/24 17:08 88 02/01/24 17:00 85 19 113/61 99 02/01/24 16:59 86 02/01/24 16:50 90 20 76/48 90 L 02/01/24 16:40 88 18 76/50 02/01/24 16:30 86 24 76/50 89 L 02/01/24 16:20 89 23 73/48 92 L 02/01/24 16:10 90 22 73/48 89 L 02/01/24 16:00 98.6 F 90 18 73/49 92 L 02/01/24 15:50 90 22 73/49 92 L 02/01/24 15:40 92 32 H 73/49 93 L 02/01/24 15:36 90 22 02/01/24 13:06 104 H 02/01/24 12:56 100 02/01/24 08:02 104 H 02/01/24 07:51 104 H 02/01/24 07:13 98.9 F 101 H 18 88/54 90 L 02/01/24 01:01 99.9 F H 107 H 18 106/63 93 L 01/31/24 20:46 98.5 F 107 H 17 122/47 98 01/31/24 20:37 101 H 01/31/24 20:28 97 01/31/24 20:17 101 H 18 107/70 95 Intake and Output 02/01/24 02/01/24 02/01/24 06:59 14:59 22:59 Intake Total 500 Output Total 2500 Balance -2000 Intake: IV 500 Sodium Chloride 0.9% 500 500 ml 500 ml @ 999 mls/hr IV .Q31M STA Rx#:[id number] Output: Gastric Drainage 2500 - Constitutional General appearance: no acute distress - EENT Eyes: EOMI Ears: negative: bulging, bullous, dull, erythema, fluid, myringotomy tube, obstructed by cerumen, scarring, unable to vistualize, other - Neck Neck: no lymphadenopathy Carotids: negative: upstroke normal, upstroke delayed, upstroke diminished, upstroke bounding, bruit absent, bruit present Thyroid: negative: normal size, enlarged, firm, nodule - Respiratory Respiratory: negative: CTA, diminished, dullness, rales, rhonchi, wheezing, prolonged expiration, prolonged inspiration, other - Cardiovascular Rhythm: regular Heart sounds: abnormal: S1, S2 - Gastrointestinal General gastrointestinal: absent bowel sounds - Integumentary Integumentary: normal, normal turgor - Neurologic Neurologic: CNII-XII intact - Musculoskeletal Musculoskeletal: gait normal - Psychiatric Psychiatric: A&O x's 3 (Soft, well-healed surgical scarring, nondistended, no r ebound or guarding, tenderness to palpation in bilateral lower quadrants) Results - Laboratory Findings CBC and BMP: 02/01/24 03:14 02/01/24 17:06 Abnormal lab findings: Abnormal Labs 01/31/24 01/31/24 02/01/24 15:18 15:18 03:14 RBC 3.85 L Hgb 11.5 L Hct 35.9 L RDW 14.7 H Lymphocytes # 0.5 L 0.56 L Eosinophils # 0.01 L Sodium Potassium 5.7 H Chloride 89 L Carbon Dioxide 33 H Anion Gap BUN 37 H Creatinine 7.16 H* Est GFR (CKD-EPI) BUN/Creatinine Ratio Glucose 180 H Calcium 10.7 H Total Bilirubin 1.4 H AST Total Protein 8.8 H Albumin 5.1 H Albumin/Globulin Ratio 02/01/24 02/01/24 03:14 17:06 RBC Hgb Hct RDW Lymphocytes # Eosinophils # Sodium 136 L Potassium 5.7 H 5.8 H Chloride 91 L 88 L Carbon Dioxide Anion Gap 19.70 H BUN 46.8 H 65 H Creatinine 7.9 A* 9.74 H* Est GFR (CKD-EPI) 7 L BUN/Creatinine Ratio 5.92 L Glucose 126 H 153 H Calcium Total Bilirubin 1.8 H AST 11 L 15 L Total Protein Albumin Albumin/Globulin Ratio 1.56 L - Diagnostic Findings Chest x-ray: image reviewed Assessment and Plan Plan: Small bowel obstruction/ileus probably due to abdominal adhesions the patient has undergone previous abdominal surgeries for renal transplantation. Patient is status post NG tube decompression with evacuation of approximately 2 to 2.5 L of gastric material. Hypovolemic shock with secondary hypotension, responded to IV fluids. End-stage renal disease on hemodialysis 3 times a week, MWF Mild hyperkalemia related to end-stage renal disease History of kidney transplantation x 2 History of hepatitis B Hypertension, history of Hyperlipidemia COPD Chronic pleural fluid and mid abdominal fluid collection with a calcified rim. The first is most likely a sequela of a previous pneumonia and parapneumonic effusion. The second is most likely related to previous abdominal surgeries. Those are benign findings Plan Give the patient a total of 1 L of fluid and monitor the blood pressure Should be able to complete hemodialysis and this will be discussed with nephrology. Dialysis can be performed today in the ICU. Will support the blood pressure and use pressors if needed. General surgery consultation Keep n.p.o. NG tube in place Monitor electrolytes Lactic acid level is not elevated Nephrology consultation Will continue to follow
[2024-02-01] MEDS: SODIUM CHLORIDE 0.9% 1,000 ML IV ONE (18:30)
[2024-02-01] MEDS: PANTOPRAZOLE 40 MG/10 ML VIAL IVP SCH (22:13)
[2024-02-01 22:34] LABS: African American GFR (CKD) 9 (>60 ml/min/1.73 sqM); Anion Gap 18 mmol/L; Blood Urea Nitrogen 42 mg/dL (9-20); Calcium 9.3 mg/dL (8.4-10.2); Carbon Dioxide 26 mmol/L (22-30); Chloride 91 mmol/L (98-107); Glucose 104 mg/dL (74-99); Non-African American GFR(CKD) 8 (>60 ml/min/1.73 sqM); Potassium 4.8 mmol/L (3.5-5.1); Sodium 135 mmol/L (137-145)
[2024-02-01] MEDS: DILTIAZEM 125 MG in SODIUM CHLORIDE 0.9% 100 ML IV SCH (23:16)
[2024-02-02 06:42] LABS: Basophils % (A) 0 %; Eosinophils % (A) 0 %; HCT 35.7 % (39.0-53.0); Hypochromasia Slight; Lymphocytes # (A) 0.6 k/uL (1.0-4.8); Lymphocytes % (A) 11 %; MCH 30.2 pg (25.0-35.0); MCHC 31.6 g/dL (31.0-37.0); MCV 95.8 fL (80.0-100.0); Mean Platelet Volume 7.3; Monocytes # (A) 0.3 k/uL (0-1.0); Monocytes % (A) 7 %; Neutrophils # (A) 3.9 k/uL (1.3-7.7); Neutrophils % (A) 79 %; Platelet Count 153 k/uL (150-450); RBC 3.72 m/uL (4.30-5.90); RDW 14.6 % (11.5-15.5)
[2024-02-02 06:48] LABS: HGB 11.3 gm/dL (13.0-17.5)
--- NOTE | 2024-02-02 07:49 | P.CRDCN ---
History of Present Illness Consult date: 02/02/24 History of present illness: History of Present Illness: The patient is a 63-year-old male, end-stage renal disease status post transplant that failed his on hemodialysis and presented with abdominal discomfort and small bowel obstruction. He was transferred to the ICU because of hypotension. He had a run of SVT and cardiology consultation was requested. He is in sinus mechanism at this time on IV Cardizem. He is hemodynamically stable. He denies any chest discomfort, dizziness or palpitations. He has no significant dyspnea. He has a history of COPD. He is followed by department chairperson at [facility] and had a prior stenting about 5 years ago and has a history of peripheral vascular disease with femorofemoral bypass. He has no clear PND, orthopnea or peripheral edema. He cannot recall a prior documented history of malignant arrhythmia. His ejection fraction estimation is not available to me. He has an NG tube and feels better with minimal flatus but improvement in his abdominal discomfort. He has no history of smoking. He had a history of renal disease at a young age. He has no urinary output. He has a history of hyperlipidemia, he is nondiabetic. Medications: Sensipar, aspirin, Spiriva, Ventolin, pravastatin, Klonopin, calcium acetate, vitamin B Review of Systems: Respiratory: He has dyspnea on exertion and carries the diagnosis of COPD GI: He had abdominal pain with nausea and vomiting : He is end-stage renal disease, status post transplant, on hemodialysis and no urinary output Nervous System: No stroke or seizure. Physical Examination: 63-year-old male, alert oriented no apparent distress, NG tube in place,Blood pressure 92/55, Heart rate 80 Head: Normocephalic. Eyes: Sclerae nonicteric. Neck: Good carotid upstroke, right-sided bruit, no jugular venous distention. Lungs: Clear to auscultation. Heart: Regular rate and rhythm, S1-S2, no S3, no rub. Systolic ejection murmur. Abdomen: Soft nontender, hypoactive bowel sounds no organomegaly. Extremities: No edema, decrease distal pulses. Labs: Hemoglobin 11.3, WBC 5.0, BUN 42, creatinine 6.88. Potassium 4.8. Chest x-ray with left lower lobe infiltrate EKG: Pending Impression: 1. Small bowel obstruction, improving 2. History of CAD status post stenting with no evidence of acute coronary syndrome 3. SVT, back in sinus mechanism 4. End-stage renal disease status post transplant with transplant failure, on dialysis 5. History of hyperlipidemia 6. Hypotension secondary to the small bowel obstruction, improving Plan: 1. Obtain an echocardiogram with Doppler 2. Continue IV Cardizem for now 3. Once taking oral change to oral medication and resume statin and aspirin 4. Depending on his progress further recommendations will be made 5. Thank you for this consult we will follow with you. Past Medical History Past Medical History: COPD, GERD/Reflux, Hyperlipidemia, Hypertension, Renal Disease Additional Past Medical History / Comment(s): lt kidney transplant- remington neuropathy, hepatitis b from hemodialysis. KIDNEY TRANSPLANT X3 . HEMO DYALYSIS MON Tue History of Any Multi-Drug Resistant Organisms: None Reported Past Surgical History: Hernia Repair, Tonsillectomy Additional Past Surgical History / Comment(s): colonoscopy, brian nephrectomy , then transplanted lt kidney last 2002, abd hernia repair(4); Past Anesthesia/Blood Transfusion Reactions: No Reported Reaction Past Psychological History: No Psychological Hx Reported Smoking Status: Former smoker Past Alcohol Use History: None Reported Additional Past Alcohol Use History / Comment(s): STARTED SMOKING AT AGE 16 QUIT SMOKING IN 2003 SMOKED 2PPD Past Drug Use History: None Reported - Past Family History Mother Family Medical History: No Reported History Father Additional Family Medical History / Comment(s): nerve conditon Medications and Allergies Home Medications Medication Instructions Recorded Confirmed Type Aspirin 81 mg PO DAILY 08/30/16 01/31/24 History Omeprazole 20 mg PO DAILY 08/30/16 01/31/24 History Albuterol Inhaler [Ventolin Hfa 2 puff INHALATION RT-Q4H PRN 01/31/24 01/31/24 History Inhaler] Albuterol Nebulized [Ventolin 2.5 mg INHALATION RT-QID 01/31/24 01/31/24 History Nebulized] Calcium Acetate 668mg 2,004 mg PO TID-W/MEALS 01/31/24 01/31/24 History Cinacalcet HCl [Sensipar] 60 mg PO W/SUPPER 01/31/24 01/31/24 History Ondansetron Odt [Zofran Odt] 4 mg PO TID PRN 01/31/24 01/31/24 History Pravastatin Sodium [Pravachol] 40 mg PO HS 01/31/24 01/31/24 History Tenofovir Disoproxil Fumarate 300 mg PO FR 01/31/24 01/31/24 History [Viread] Tiotropium 2.5 Mcg/Puff [Spiriva 2 puff INHALATION RT-DAILY 01/31/24 01/31/24 History Respimat 2.5 Mcg] Vit B Comp No.3/Folic/C/Biotin 1 tab PO DAILY 01/31/24 01/31/24 History [Blanca-Ros Rx Tablet] clonazePAM [KlonoPIN ODT] 0.25 mg PO HS PRN 01/31/24 01/31/24 History Allergies Allergy/AdvReac Type Severity Reaction Status Date / Time No Known Allergies Allergy Verified 01/31/24 15:39 Physical Exam Vitals: Vital Signs Temp Pulse Pulse Resp BP BP Pulse Ox 02/02/24 07:00 80 22 92/55 92 L 02/02/24 06:30 84 12 97/53 95 02/02/24 06:00 81 24 92/53 96 02/02/24 05:30 83 20 89/57 95 02/02/24 05:00 83 24 93/56 95 02/02/24 04:30 85 20 99/53 96 02/02/24 04:00 98.6 F 83 22 93/54 96 02/02/24 03:30 84 24 93/55 95 02/02/24 03:00 83 20 94/52 95 02/02/24 02:30 82 24 90/50 95 02/02/24 02:00 83 24 93/55 96 02/02/24 01:30 85 14 91/58 95 02/02/24 01:00 89 23 95/55 96 02/02/24 00:30 89 22 90/54 97 02/02/24 00:00 98.1 F 90 24 91/59 96 02/01/24 23:30 92 23 83/53 95 02/01/24 23:00 112 H 17 97 02/01/24 22:38 96 20 89/56 96 02/01/24 22:30 94 24 93/54 95 02/01/24 22:00 95 12 98/58 95 02/01/24 21:30 92 24 89/56 95 02/01/24 21:21 93 02/01/24 21:17 82 02/01/24 21:00 102 H 23 86/55 95 02/01/24 20:51 98 F 94 23 93/68 02/01/24 20:30 96 23 112/69 97 02/01/24 20:00 122 H 14 95/62 96 02/01/24 19:30 96 17 90/54 95 02/01/24 19:00 89 28 H 105/55 91 L 02/01/24 18:50 95 21 92/52 02/01/24 18:40 84 21 93/51 02/01/24 18:30 85 8 L 71/51 02/01/24 18:20 87 22 87/58 02/01/24 18:10 87 25 H 87/63 02/01/24 18:00 87 21 84/50 02/01/24 17:50 88 13 84/50 91 L 02/01/24 17:40 88 25 H 85/52 92 L 02/01/24 17:30 87 10 L 85/52 02/01/24 17:20 87 25 H 113/61 95 02/01/24 17:10 87 37 H 113/61 96 02/01/24 17:08 88 02/01/24 17:00 85 19 113/61 99 02/01/24 16:59 86 02/01/24 16:50 90 20 76/48 90 L 02/01/24 16:40 88 18 76/50 02/01/24 16:30 86 24 76/50 89 L 02/01/24 16:20 89 23 73/48 92 L 02/01/24 16:10 90 22 73/48 89 L 02/01/24 16:00 98.6 F 90 18 73/49 92 L 02/01/24 15:50 90 22 73/49 92 L 02/01/24 15:40 92 32 H 73/49 93 L 02/01/24 15:36 90 22 02/01/24 13:06 104 H 02/01/24 12:56 100 02/01/24 08:02 104 H 02/01/24 07:51 104 H Intake and Output 02/01/24 02/02/24 02/02/24 22:59 06:59 14:59 Intake Total 1250 Output Total 3800 300 Balance -2550 -300 Intake: IV 500 Sodium Chloride 0.9% 500 500 ml 500 ml @ 999 mls/hr IV .Q31M STA Rx#:[id number] Hemodialysis 750 Output: Gastric Drainage 3050 300 Urine 0 0 Hemodialysis 500 Hemodialysis Net Amount 250 Other: Weight 81.2 kg Results 02/02/24 06:09 02/01/24 21:51 Cardiac Enzymes 02/01/24 02/01/24 Range/Units 03:14 17:06 AST 11 L 15 L (13-35) U/L CBC 02/01/24 02/02/24 Range/Units 03:14 06:09 WBC 6.23 5.0 (4.50-10.00) X 10*3/uL RBC 3.85 L 3.72 L (4.10-5.60) X 10*6/uL Hgb 11.5 L 11.3 L D (12.0-17.0) g/dL Hct 35.9 L 35.7 L (37.2-50.0) % Plt Count 166 153 (140-440) X 10*3/uL Comprehensive Metabolic Panel 02/01/24 02/01/24 02/01/24 Range/Units 03:14 17:06 21:51 Sodium 137 136 L 135 L (135-145) mmol/L Potassium 5.7 H 5.8 H 4.8 (3.5-5.5) mmol/L Chloride 91 L 88 L 91 L (96-109) mmol/L Carbon Dioxide 26.3 29 26 (21.6-31.8) mmol/L BUN 46.8 H 65 H 42 H (9.0-27.0) mg/dL Creatinine 7.9 A* 9.74 H* 6.88 H (0.6-1.5) mg/dL Glucose 126 H 153 H 104 H (70-110) mg/dL Calcium 9.2 9.4 9.3 (8.7-10.3) mg/dL AST 11 L 15 L (13-35) U/L ALT 10 12 (8-49) U/L Alkaline Phosphatase 99 86 (41-126) U/L Total Protein 6.4 6.7 (6.2-8.2) g/dL Albumin 3.9 4.0 (3.8-4.9) g/dL Current Medications Generic Name Dose Route Start Last Admin Trade Name Freq PRN Reason Stop Dose Admin Acetaminophen 650 mg 01/31/24 18:21 01/31/24 21:09 Acetaminophen Tab 325 Mg Tab PO 650 mg Q6HR PRN Administration Mild Pain or Fever > 100.5 Hydrocodone Bitart/Acetaminophen 1 each 02/01/24 00:56 02/01/24 12:04 Hydrocodone/Apap 5-325mg 1 Each Tab PO 1 each Q6HR PRN Administration Pain Albuterol Sulfate 2 puff 01/31/24 18:26 Albuterol Hfa Inhaler INHALATION RT-Q4H PRN Shortness Of Breath Albuterol Sulfate 2.5 mg 01/31/24 20:00 02/01/24 21:14 Albuterol Nebulized 2.5 Mg/3 Ml INHALATION 2.5 mg RT-QID ARETHA Administration Aspirin 81 mg 02/01/24 09:00 02/01/24 08:29 Aspirin 81 Mg PO 81 mg DAILY ARETHA Administration Clonazepam 0.25 mg 01/31/24 18:26 Clonazepam 0.5 Mg Tab PO HS PRN Anxiety Heparin Sodium (Porcine) 5,000 unit 02/01/24 13:45 02/01/24 22:13 Heparin Sodium,Porcine 5,000 Unit/Ml 1 Ml Vial SQ 5,000 unit Q12HR ARETHA Administration Hydromorphone HCl 0.5 mg 02/01/24 13:43 02/01/24 14:09 Hydromorphone 0.5 Mg/0.5 Ml Syringe IVP 0.5 mg Q4HR PRN Administration Severe Pain (Scale 7 to 10) Diltiazem HCl 125 mg/ Sodium 125 mls @ 10 mls/hr 02/01/24 23:15 02/01/24 23:16 Chloride IV 10 mg/hr .Q06Q35L ARETHA 10 mls/hr Administration 10 MG/HR Midodrine 10 mg 02/01/24 17:30 02/01/24 16:19 Midodrine 5 Mg Tab PO Not Given AC-TID ARETHA Multivit/Ca Carb/B Cmplx/FA/Prenat 1 each 02/01/24 09:00 02/01/24 08:29 Folic Acid-Vit B Complex-Vit C 1 Cap PO 1 each DAILY ARETHA Administration Naloxone HCl 0.2 mg 01/31/24 18:21 Naloxone 0.4 Mg/Ml 1 Ml Vial IV Q2M PRN Opioid Reversal Tenofovir Disoproxil 300 mg 02/03/24 09:00 Fumarate [Viread] PO 300 Mg Tablet FR ARETHA Ondansetron HCl 4 mg 02/01/24 14:08 Ondansetron 4 Mg/2 Ml Vial IVP Q6HR PRN Nausea And Vomiting Pantoprazole Sodium 40 mg 02/01/24 21:00 02/01/24 22:13 Pantoprazole 40 Mg/10 Ml Vial IVP 40 mg BID ARETHA Administration Pravastatin Sodium 40 mg 01/31/24 21:00 02/01/24 22:10 Pravastatin Sodium 40 Mg Tab PO Not Given HS ARETHA Tiotropium [place] 2 puff 02/01/24 08:00 02/01/24 13:02 Tiotropium 2.5 Mcg Inhaler INHALATION 2 puff RT-DAILY ARETHA Administration Intake and Output 02/01/24 02/02/24 02/02/24 22:59 06:59 14:59 Intake Total 1250 Output Total 3800 300 Balance -2550 -300 Intake: IV 500 Sodium Chloride 0.9% 500 500 ml 500 ml @ 999 mls/hr IV .Q31M STA Rx#:[id number] Hemodialysis 750 Output: Gastric Drainage 3050 300 Urine 0 0 Hemodialysis 500 Hemodialysis Net Amount 250 Other: Weight 81.2 kg 02/02/24 06:09 02/01/24 21:51
--- NOTE | 2024-02-02 08:39 | FL ---
EXAMINATION TYPE: FL small bowel follow through DATE OF EXAM: 02/02/2024 CLINICAL HISTORY: 07/03/2015 TECHNIQUE: A single contrast small bowel follow through is performed utilizing barium. COMPARISON: None FINDINGS: Field Marketing Lead image of the abdomen shows large calcification in the abdomen. 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 Degenerative changes of the spine. Additional vascular calcifications. Bila teral hip arthropathy. There is delayed transit of small bowel contrast with no colonic contrast seen in 330 minutes. No add itional imaging is submitted for interpretation. Retained fecal debris throughout the colon correlate for constipation IMPRESSION: 1. Limited exam terminated and 330 minutes with no contrast seen within the colon. Bowel obstruction the differential diagnosis.. 2. Correlate for constipation. [facility], , 02/02/2024 8:37 AM
[2024-02-02 09:20] LABS: ALT 10 U/L (4-49); AST 17 U/L (17-59); African American GFR (CKD) 8 (>60 ml/min/1.73 sqM); Albumin 3.7 g/dL (3.5-5.0); Alkaline Phosphatase 79 U/L (38-126); Anion Gap 21 mmol/L; Blood Urea Nitrogen 49 mg/dL (9-20); Calcium 9.4 mg/dL (8.4-10.2); Carbon Dioxide 23 mmol/L (22-30); Chloride 92 mmol/L (98-107); Glucose 104 mg/dL (74-99); Non-African American GFR(CKD) 7 (>60 ml/min/1.73 sqM); Potassium 5.3 mmol/L (3.5-5.1); Sodium 136 mmol/L (137-145); Total Bilirubin 1.3 mg/dL (0.2-1.3); Total Protein 6.4 g/dL (6.3-8.2)
--- NOTE | 2024-02-02 10:21 | CA ---
Transthoracic Echo Report Name: Kota Goddard Age: 63 Gender: M : 1960 Exam Date: 02/01/2024 17:30 Exam Location: [place] [facility] Ht (in): 75 Wt (lb): 183 Ordering Physician: Cleve Briceno MD Attending/Referring Phys: Leather Belt Loop Cutter Mishel Banegas RDCS Procedure CPT: Indications: LV function Cardiac Hx: Technical Quality: Poor Contrast 1: Definity Total Dose (mL): 2 Contrast 2: Total Dose (mL): MEASUREMENTS (Male / Female) Normal Values 2D ECHO LV Diastolic Diameter PLAX 4.1 cm 4.2 - 5.9 / 3.9 - 5.3 cm LV Systolic Diameter PLAX 3.2 cm IVS Diastolic Thickness 1.1 cm 0.6 - 1.0 / 0.6 - 0.9 cm LVPW Diastolic Thickness 1.3 cm 0.6 - 1.0 / 0.6 - 0.9 cm LV Relative Wall Thickness 0.6 RV Internal Dim ED PLAX 5.2 cm LV Diastolic Volume MOD BP 123.4 cm??? 67 - 155 / 56 - 104 cm??? LV Systolic Volume MOD BP 63.3 cm??? 22 - 58 / 19 - 49 cm??? LV Ejection Fraction MOD BP 48.7 % >= 55 % LV Diastolic Volume MOD 4C 110.1 cm??? LV Systolic Volume MOD 4C 59.0 cm??? LV Ejection Fraction MOD 4C 46.4 % LV Diastolic Length 4C 9.8 cm LV Systolic Length 4C 8.5 cm LV Diastolic Volume MOD 2C 124.1 cm??? LV Systolic Volume MOD 2C 59.8 cm??? LV Ejection Fraction MOD 2C 51.8 % LV Diastolic Length 2C 9.7 cm LV Systolic Length 2C 7.5 cm LA Volume 43.0 cm??? 18 - 58 / 22 - 52 cm??? LA Volume Index 20.6 cm???/m??? 16 - 28 cm???/m??? M-MODE Aortic Root Diameter MM 3.8 cm LA Systolic Diameter MM 4.5 cm LA Ao Ratio MM 1.2 AV Cusp Separation MM 1.3 cm DOPPLER AV Peak Velocity 231.8 cm/s AV Peak Gradient 21.5 mmHg AV Mean Velocity 146.9 cm/s AV Mean Gradient 10.7 mmHg AV Velocity Time Integral 29.4 cm LVOT Peak Velocity 129.9 cm/s LVOT Peak Gradient 6.8 mmHg LVOT Velocity Time Integral 19.5 cm MV Area PHT 3.5 cm??? Mitral E Point Velocity 94.3 cm/s Mitral A Point Velocity 79.6 cm/s Mitral E to A Ratio 1.2 MV Deceleration Time 214.8 ms MV E' Velocity 7.4 cm/s Mitral E to MV E' Ratio 12.8 TR Peak Velocity 279.4 cm/s TR Peak Gradient 31.2 mmHg Right Ventricular Systolic Press 35.2 mmHg FINDINGS Left Ventricle Left ventricular ejection fraction is estimated at 45-50%. Mildly increased septal wall thickness. Mildly increased left ventricular systolic volume. Mildly decreased left ventricular ejection fraction. Mildly reduced global left ventricular systolic function. Grade 1 diastolic dysfunction. Right Ventricle Mild right ventricular dilatation. Mild pulmonary hypertension. Right Atrium Mild right atrial dilatation. Left Atrium Mild left atrial dilatation. Mitral Valve Structurally normal mitral valve. Mitral annular calcification. Mild mitral regurgitation. Aortic Valve Trileaflet aortic valve. Mild aortic stenosis with a peak gradient of 22 mmHg and a mean gradient of 11mmHg. Tricuspid Valve Structurally normal tricuspid valve. Mild tricuspid regurgitation. No tricuspid stenosis. Pulmonic Valve Pulmonic valve not well visualized. Trace pulmonic regurgitation. No pulmonic stenosis. Pericardium No pericardial or pleural effusion. Aorta Mild aortic dilatation at the level of the sinuses of valsalva (root). CONCLUSIONS Diagnosis shortness of breath, assess LV function Reduced LV systolic function with increased LV mass RV enlargement Biatrial enlargement Mild aortic stenosis Previewed by: Dr. Johnie Regan MD (Electronically Signed) Final Date: 02 February 2024 10:20
--- NOTE | 2024-02-02 10:24 | P.PN ---
Subjective Patient is seen in follow-up for end-stage renal disease. He is maintained on hemodialysis on Tuesday schedule. Currently in the ICU. On Cardizem drip for SVTs. Completed hemodialysis yesterday. Vital signs are stable. General: No acute distress. HEENT: NG tube noted. LUNGS: No audible rhonchi or wheezes. HEART: Irregular rate and rhythm. ABDOMEN: Nontender. EXTREMITITES: No edema. Objective - Vital Signs Vital signs: Vital Signs Temp 98.6 F 02/02/24 04:00 Pulse 77 02/02/24 08:57 Resp 22 02/02/24 07:00 BP 92/55 02/02/24 07:00 Pulse Ox 92 L 02/02/24 07:00 FiO2 Intake & Output 02/01/24 02/02/24 02/02/24 18:59 06:59 18:59 Intake Total 500 750 Output Total 2500 1600 Balance -2000 -850 Weight 81.2 kg Intake: IV 500 Sodium Chloride 0.9% 500 500 ml 500 ml @ 999 mls/hr IV .Q31M STA Rx#:[id number] Hemodialysis 750 Output: Gastric Drainage 2500 850 Urine 0 0 Hemodialysis 500 Hemodialysis Net Amount 250 - Labs CBC & Chem 7: 02/02/24 06:09 02/02/24 06:09 Labs: Abnormal Lab Results - Last 24 Hours (Table) 02/01/24 02/01/24 02/02/24 Range/Units 17:06 21:51 06:09 RBC 3.72 L (4.30-5.90) m/uL Hgb 11.3 L D (13.0-17.5) gm/dL Hct 35.7 L (39.0-53.0) % Lymphocytes # 0.6 L (1.0-4.8) k/uL Sodium 136 L 135 L (137-145) mmol/L Potassium 5.8 H (3.5-5.1) mmol/L Chloride 88 L 91 L (98-107) mmol/L BUN 65 H 42 H (9-20) mg/dL Creatinine 9.74 H* 6.88 H (0.66-1.25) mg/dL Glucose 153 H 104 H (74-99) mg/dL Total Bilirubin 1.8 H (0.2-1.3) mg/dL AST 15 L (17-59) U/L 02/02/24 Range/Units 06:09 RBC (4.30-5.90) m/uL Hgb (13.0-17.5) gm/dL Hct (39.0-53.0) % Lymphocytes # (1.0-4.8) k/uL Sodium 136 L (137-145) mmol/L Potassium 5.3 H (3.5-5.1) mmol/L Chloride 92 L (98-107) mmol/L BUN 49 H (9-20) mg/dL Creatinine 7.91 H* (0.66-1.25) mg/dL Glucose 104 H (74-99) mg/dL Total Bilirubin (0.2-1.3) mg/dL AST (17-59) U/L Assessment and Plan Plan: Assessment: 1. End-stage renal disease maintained on hemodialysis on Tuesday schedule. 2. Abdominal pain due to ileus versus bowel obstruction. Surgery following. Has NG tube. 3. Coronary disease with cardiac stenting. 4. Peripheral vascular disease status post surgical invention in the past. Patient follows with vascular surgery from [facility]. 5. Chronic kidney disease mineral bone disease maintained on Sensipar and PhosLo outpatient. 6. History of hepatitis B maintained on tenofovir. 7. Hyperkalemia secondary to chronic kidney disease. Improved postdialysis. 8. SVTs maintained on Cardizem drip. Plan: Hemodialysis tomorrow. Start normal saline at 75 cc an hour.
[2024-02-02] MEDS: SODIUM CHLORIDE 0.9% 1,000 ML IV SCH (11:57)
--- NOTE | 2024-02-02 12:49 | P.PN ---
Subjective Progress Note Date: 02/02/24 This is a 63-year-old male patient who got transferred to the ICU because of hypotension. The patient is admitted currently for small bowel obstruction. The patient is known to have end-stage renal disease on hemodialysis and his last hemodialysis session was yesterday. He gets dialyzed MWF. He has had previous kidney transplantation and has essentially failed. He has had previous surgeries in his abdomen for transplantation. He presented to the hospital because of abdominal pain, cramping, nausea and emesis and his last bowel movement was around 4 days ago. CAT scan of the abdomen showed dilated small bowel consistent with ileus/small bowel obstruction. General surgery is on the case. Because of ongoing discomfort, NG tube was inserted and immediately approximately 2 L of gastric material was aspirated. Subsequently patient became hypotensive. He starts cardiac blood pressure is was in the mid 70s. He got transferred to the ICU. Given half a liter of normal saline and the current blood pressure is 113/61. He is awake and alert. He is currently on room air oxygen with a pulse ox of 99%. No significant tachycardia. No reported fever. The white cell count is at 6.2 with a hemoglobin of 11.5 and a platelet count of 166. BUN 65 with a creatinine of 9.7 and the patient's potassium level is at 5.8 and a sodium level of 136. Amylase and lipase are within normal limits. LFTs are within normal limits. CAT scan of the abdomen also showed a loculated pleural effusion in the left lung base above the left hemidiaphragm with a calcified rim which is a sequelae of previous pneumonia/parapneumonic effusion. He has another calcified rim collection in the mid pelvis. Denies having any cough or sputum production. No significant respiratory distress. (Done 4 hours during the 02/02/2024, the patient is being seen for a follow-up. NG tube is still in place and the patient denies having any significant nausea or vomiting and no significant abdominal pains on today's evaluation. The patient has produced approximately 3.3 L of gastric output since insertion of the NG tube. Currently, IV fluids are at KVO. The patient underwent hemodialysis yesterday with ultrafiltration of 500 cc of fluids. No fever. No chills. No tachycardia. He did encounter a run of SVT yesterday and based on that, the patient was started on a Cardizem drip which is running at 10 mg an hour. Currently, he is in normal sinus rhythm. Cardiology has been consulted. The white cell count is at 5 with a hemoglobin 11.3 and a platelet count of 153. Sodium is at 136, potassium is at 5.3, BUN is 49 with a creatinine of 7.9 and the patient serum bicarb is at 23. LFTs are all within normal limits. Amylase and lipase are also within normal limits. A follow-up small bowel x-ray that was done today showed limited examination with no contrast seen in the colon. Bowel obstruction is likely still present. The patient has no altered mentation. Communicating. Denies having any specific complaints.Echocardiogram was completed yesterday and the patient was found to have LV ejection fraction of 45 to 50%. There was also mild increase in the septal wall thickness. Increase in the left ventricular volume systolic. No significant valvular abnormalities other than some mild degree of aortic stenosis. Objective - Vital Signs Vital signs: Vital Signs Temp 98.6 F 02/02/24 04:00 Pulse 80 02/02/24 07:00 Resp 22 02/02/24 07:00 BP 92/55 02/02/24 07:00 Pulse Ox 92 L 02/02/24 07:00 FiO2 Intake & Output 02/01/24 02/02/24 02/02/24 18:59 06:59 18:59 Intake Total 500 750 Output Total 2500 1600 Balance -2000 -850 Weight 81.2 kg Intake: IV 500 Sodium Chloride 0.9% 500 500 ml 500 ml @ 999 mls/hr IV .Q31M [facility] Rx#:[id number] Hemodialysis 750 Output: Gastric Drainage 2500 850 Urine 0 0 Hemodialysis 500 Hemodialysis Net Amount 250 - Exam - Constitutional General appearance: no acute distress - EENT Eyes: EOMI Ears: negative: bulging, bullous, dull, erythema, fluid, myringotomy tube, obstructed by cerumen, scarring, unable to vistualize, other - Neck Neck: no lymphadenopathy Carotids: negative: upstroke normal, upstroke delayed, upstroke diminished, upstroke bounding, bruit absent, bruit present Thyroid: negative: normal size, enlarged, firm, nodule - Respiratory Respiratory: negative: CTA, diminished, dullness, rales, rhonchi, wheezing, prolonged expiration, prolonged inspiration, other - Cardiovascular Rhythm: regular Heart sounds: abnormal: S1, S2 - Gastrointestinal General gastrointestinal: absent bowel sounds - Integumentary Integumentary: normal, normal turgor - Neurologic Neurologic: CNII-XII intact - Musculoskeletal Musculoskeletal: gait normal - Psychiatric Psychiatric: A&O x's 3 (Soft, well-healed surgical scarring, nondistended, no rebound or guarding, tenderness to palpation in bilateral lower quadrants) - Labs CBC & Chem 7: 02/02/24 06:09 02/02/24 06:09 Labs: Abnormal Lab Results - Last 24 Hours (Table) 02/01/24 02/01/24 02/01/24 Range/Units 03:14 03:14 17:06 RBC 3.85 L (4.10-5.60) X 10*6/uL Hgb 11.5 L (12.0-17.0) g/dL Hct 35.9 L (37.2-50.0) % RDW 14.7 H (11.5-14.5) % Lymphocytes # 0.56 L (0.90-5.00) X 10*3/uL Eosinophils # 0.01 L (0.04-0.35) X 10*3/uL Sodium 136 L (137-145) mmol/L Potassium 5.7 H 5.8 H (3.5-5.5) mmol/L Chloride 91 L 88 L (96-109) mmol/L Anion Gap 19.70 H (4.00-12.00) mmol/L BUN 46.8 H 65 H (9.0-27.0) mg/dL Creatinine 7.9 A* 9.74 H* (0.6-1.5) mg/dL Est GFR (CKD-EPI) 7 L (>=60) BUN/Creatinine Ratio 5.92 L (12.00-20.00) Ratio Glucose 126 H 153 H (70-110) mg/dL Total Bilirubin 1.8 H (0.2-1.3) mg/dL AST 11 L 15 L (13-35) U/L Albumin/Globulin Ratio 1.56 L (1.60-3.17) Ratio 02/01/24 02/02/24 Range/Units 21:51 06:09 RBC 3.72 L (4.10-5.60) X 10*6/uL Hgb 11.3 L D (12.0-17.0) g/dL Hct 35.7 L (37.2-50.0) % RDW (11.5-14.5) % Lymphocytes # 0.6 L (0.90-5.00) X 10*3/uL Eosinophils # (0.04-0.35) X 10*3/uL Sodium 135 L (137-145) mmol/L Potassium (3.5-5.5) mmol/L Chloride 91 L (96-109) mmol/L Anion Gap (4.00-12.00) mmol/L BUN 42 H (9.0-27.0) mg/dL Creatinine 6.88 H (0.6-1.5) mg/dL Est GFR (CKD-EPI) (>=60) BUN/Creatinine Ratio (12.00-20.00) Ratio Glucose 104 H (70-110) mg/dL Total Bilirubin (0.2-1.3) mg/dL AST (13-35) U/L Albumin/Globulin Ratio (1.60-3.17) Ratio Assessment and Plan Plan: Small bowel obstruction/ileus probably due to abdominal adhesions the patient has undergone previous abdominal surgeries for renal transplantation. Patient is status post NG tube decompression with evacuation of approximately 3.5 L of gastric material. The patient's NG tube remains in place. No nausea or vomiting or abdominal pain. General surgery is on the case. Hemodynamically stable. Hypovolemic shock with secondary hypotension, responded to IV fluids. End-stage renal disease on hemodialysis 3 times a week, MWF, underwent a short session of hemodialysis yesterday with a ultrafiltration of 500 cc. Mild hyperkalemia related to end-stage renal disease History of kidney transplantation x 2 History of hepatitis B Hypertension, history of Hyperlipidemia COPD Chronic pleural fluid and mid abdominal fluid collection with a calcified rim. The first is most likely a sequela of a previous pneumonia and parapneumonic effusion. The second is most likely related to previous abdominal surgeries. Those are benign findings SVT, currently back into normal sinus rhythm and the patient is currently on Cardizem drip at 10 mg an hour. CHF with mild impairment of LV function and mild aortic stenosis. Plan Keep the patient n.p.o. Keep the NG tube in place X-ray of the abdomen was noted General surgery consultation Keep n.p.o. No need for pressors at the patient is hemodynamically stable wean down Cardizem to 5 mg an hour. Consult cardiology Monitor electrolytes Lactic acid level is not elevated Nephrology consultation Will continue to follow
--- NOTE | 2024-02-02 14:51 | HP ---
HISTORY AND PHYSICAL CHIEF COMPLAINT: Abdominal pain and vomiting. HISTORY OF PRESENT ILLNESS: This is a 63-year-old gentleman with past medical history of multiple medical problems including end-stage renal disease, on hemodialysis, complaining of nausea, vomiting, and abdominal distention. The patient is being evaluated by Surgery and Nephrology at this time. The possibility of small bowel obstruction versus partial ileus is being considered. Small-bowel follow-through was being recommended at this time. No chest pain. No palpitation. PAST MEDICAL HISTORY: Reviewed. End-stage renal disease, on hemodialysis, hypertension, hyperlipidemia, rest of the history and rest of the chart is also reviewed. HOME MEDICATIONS: Reviewed include vitamin B complex, dose and rest of medications reviewed. ALLERGIES: None. FAMILY HISTORY: No history of heart disease, or strokes in the family. SOCIAL HISTORY: Previous history of smoking. REVIEW OF SYSTEMS: Fourteen-point review is negative except as mentioned earlier. PHYSICAL EXAMINATION: VITAL SIGNS: Pulse is 101, blood pressure 88/54, respirations 18. CHEST: A few scattered rhonchi and crackles. ABDOMEN: Soft, mild diffuse distention. Mild diffuse tenderness. LEGS: No edema. NERVOUS SYSTEM: Nonfocal. LABORATORY DATA: Reviewed. Potassium 5.7. CT scan noted. ASSESSMENT: 1. Abdominal distention, possibly small-bowel obstruction versus ileus. 2. End-stage renal disease, on hemodialysis. 3. Hypertension. 4. Hyperlipidemia. 5. History of left kidney transplant. RECOMMENDATIONS AND DISCUSSION: In this 63-year-old gentleman, who presented with multiple complex medical issues, we will monitor the patient closely. Continue current management and continue symptomatic treatment, pain management. Await small-bowel follow-through. Closely follow with Surgery. Guarded prognosis. Further recommendations to follow. See orders for further details. MMODL / IJN: [id number] /
--- NOTE | 2024-02-02 21:57 | P.PN ---
Subjective Patient seen and evaluated at bedside. Patient denies nausea/vomiting. nasogastric tube decreased output. Objective - Vital Signs Vital signs: Vital Signs Temp 98.0 F 02/02/24 20:00 Pulse 77 02/02/24 20:46 Resp 21 02/02/24 20:00 BP 105/57 02/02/24 20:00 Pulse Ox 94 L 02/02/24 20:00 FiO2 Intake & Output 02/02/24 02/02/24 02/03/24 06:59 18:59 06:59 Intake Total 750 800 150 Output Total 1600 150 0 Balance -850 650 150 Weight 81.2 kg Intake: IV 375 150 Sodium Chloride 0.9% 1, 375 150 000 ml @ 75 mls/hr IV . [id number] [facility] Rx#:[id number] Intake, IV Titration 425 Amount Diltiazem 125 mg In 125 Sodium Chloride 0.9% 100 ml @ 10 MG/HR 10 mls/hr IV .[id number] [facility] Rx#: [id number] Sodium Chloride 0.9% 1, 300 000 ml @ 75 mls/hr IV . [id number] [facility] Rx#:[id number] Hemodialysis 750 Output: Gastric Drainage 850 150 Urine 0 0 0 Hemodialysis 500 Hemodialysis Net Amount 250 - Exam gen;nad cv; rrr pul; non labored breathing abd; soft, mild distention, no guarding or rebound tenderness - Labs CBC & Chem 7: 02/02/24 06:09 02/02/24 06:09 Labs: Abnormal Lab Results - Last 24 Hours (Table) 02/01/24 02/02/24 02/02/24 Range/Units 21:51 06:09 06:09 RBC 3.72 L (4.30-5.90) m/uL Hgb 11.3 L D (13.0-17.5) gm/dL Hct 35.7 L (39.0-53.0) % Lymphocytes # 0.6 L (1.0-4.8) k/uL Sodium 135 L 136 L (137-145) mmol/L Potassium 5.3 H (3.5-5.1) mmol/L Chloride 91 L 92 L (98-107) mmol/L BUN 42 H 49 H (9-20) mg/dL Creatinine 6.88 H 7.91 H* (0.66-1.25) mg/dL Glucose 104 H 104 H (74-99) mg/dL Assessment and Plan Assessment: 63 yo male with ileus vs small bowel obstruction -we will continue medical management -passing gas, we will attempt clamping of nasogastric tube and sips of clear liquids -possible small bowel follow through in am. Time with Patient: Less than 30
--- NOTE | 2024-02-02 22:07 | P.PN ---
Subjective Progress Note Date: 02/02/24 Evaluated patient today in the intensive care unit resting in bed. Not reporting any specific abdominal pain with the exception of some mild tenderness with palpation. NG tube was placed yesterday with 2L of gastric output. Ended up in the ICU secondary to hypotension. NG tube currently in place and patient is NPO. He is not passing gas. Underwent small bowel follow through this AM showing limited exam terminated at 330 minutes with no contrast seen within the colon. Bowel obstruction in the differential diagnosis, correlate for constipation. Sodium 136, potassium 5.3, BUN 49, creatinine 7.91. Was placed on IV cardizem overnight due to episode of SVT. Remains on cardizem running at 10 mls/hr. On n ormal saline at 75 mls/hr. Review of Systems Constitutional: Denied any fatigue denied any fever. Cardio vascular: denied any chest pain, palpitations Gastrointestinal: denied any nausea, vomiting, diarrhea Pulmonary: Denied any shortness of breath cough Neurologic denied any new focal deficits All inpatient medications were reviewed and appropriate changes in these medications as dictated in the interval history and assessment and plan. PHYSICAL EXAMINATION: GENERAL: The patient is alert and oriented x3, not in any acute distress. Well developed, well nourished. HEENT: Pupils are round and equally reacting to light. EOMI. No scleral icterus. No conjunctival pallor. Normocephalic, atraumatic. No pharyngeal erythema. No thyromegaly. CARDIOVASCULAR: S1 and S2 present. No murmurs, rubs, or gallops. PULMONARY: Chest is clear to auscultation, no wheezing or crackles. ABDOMEN: Soft, nontender, mild distended, normoactive bowel sounds. No palpable organomegaly. NG tube in place MUSCULOSKELETAL: No joint swelling or deformity. EXTREMITIES: No cyanosis, clubbing, or pedal edema. NEUROLOGICAL: Gross neurological examination did not reveal any focal deficits. SKIN: No rashes. Assessment Small bowel obstruction vs. Ileus; NG tube in place patient remains NPO, General surgery following End stage renal disease maintained on hemodialysis Episode of SVT Hyperkalemia Chronic pleural effusion Hx of left kidney transplant Hepatitis B COPD with no acute exacerbation Gastroesophageal reflux disease Hypertension Hyperlipidemia Former Smoker GI prophylaxis DVT prophylaxis Full Code Plan Continue NG tube NPO diet and bowel rest Continue IV cardizem and pending cardiology consultation General surgery following Nephrology following, continue hemodialysis MWF; next hemodialysis session scheduled for tomorrow Repeat blood work in the AM. Continue to monitor patient closely in the ICU. The impression and plan of care has been dictated by Shey Sue, Nurse Practitioner as directed. Dr. Ashkan MD I have performed a history and physical examination and medical decision making of this patient, discussed the same with the dictator, and agree with the dictators assessment and plan as written, documented as a scribe. Based on total visit time, I have performed more than 50% of this visit. Objective - Vital Signs Vital signs: Vital Signs Temp 98.6 F 02/02/24 04:00 Pulse 77 02/02/24 08:57 Resp 22 02/02/24 07:00 BP 92/55 02/02/24 07:00 Pulse Ox 92 L 02/02/24 07:00 FiO2 Intake & Output 02/01/24 02/02/24 02/02/24 18:59 06:59 18:59 Intake Total 500 750 Output Total 2500 1600 Balance -2000 -850 Weight 81.2 kg Intake: IV 500 Sodium Chloride 0.9% 500 500 ml 500 ml @ 999 mls/hr IV .Q31M [facility] Rx#:[id number] Hemodialysis 750 Output: Gastric Drainage 2500 850 Urine 0 0 Hemodialysis 500 Hemodialysis Net Amount 250 - Labs CBC & Chem 7: 02/02/24 06:09 02/02/24 06:09 Labs: Abnormal Lab Results - Last 24 Hours (Table) 02/01/24 02/01/24 02/01/24 Range/Units 03:14 17:06 21:51 RBC (4.30-5.90) m/uL Hgb (13.0-17.5) gm/dL Hct (39.0-53.0) % Lymphocytes # (1.0-4.8) k/uL Sodium 136 L 135 L (137-145) mmol/L Potassium 5.7 H 5.8 H (3.5-5.5) mmol/L Chloride 91 L 88 L 91 L (96-109) mmol/L Anion Gap 19.70 H (4.00-12.00) mmol/L BUN 46.8 H 65 H 42 H (9.0-27.0) mg/dL Creatinine 7.9 A* 9.74 H* 6.88 H (0.6-1.5) mg/dL Est GFR (CKD-EPI) 7 L (>=60) BUN/Creatinine Ratio 5.92 L (12.00-20.00) Ratio Glucose 126 H 153 H 104 H (70-110) mg/dL Total Bilirubin 1.8 H (0.2-1.3) mg/dL AST 11 L 15 L (13-35) U/L Albumin/Globulin Ratio 1.56 L (1.60-3.17) Ratio 02/02/24 02/02/24 Range/Units 06:09 06:09 RBC 3.72 L (4.30-5.90) m/uL Hgb 11.3 L D (13.0-17.5) gm/dL Hct 35.7 L (39.0-53.0) % Lymphocytes # 0.6 L (1.0-4.8) k/uL Sodium 136 L (137-145) mmol/L Potassium 5.3 H (3.5-5.5) mmol/L Chloride 92 L (96-109) mmol/L Anion Gap (4.00-12.00) mmol/L BUN 49 H (9.0-27.0) mg/dL Creatinine 7.91 H* (0.6-1.5) mg/dL Est GFR (CKD-EPI) (>=60) BUN/Creatinine Ratio (12.00-20.00) Ratio Glucose 104 H (70-110) mg/dL Total Bilirubin (0.2-1.3) mg/dL AST (13-35) U/L Albumin/Globulin Ratio (1.60-3.17) Ratio Assessment and Plan Time with Patient: Less than 30
[2024-02-03 04:05] LABS: ALT 9 U/L (4-49); AST 15 U/L (17-59); African American GFR (CKD) 6 (>60 ml/min/1.73 sqM); Albumin 3.6 g/dL (3.5-5.0); Alkaline Phosphatase 85 U/L (38-126); Anion Gap 17 mmol/L; Blood Urea Nitrogen 63 mg/dL (9-20); Calcium 9.1 mg/dL (8.4-10.2); Carbon Dioxide 25 mmol/L (22-30); Chloride 93 mmol/L (98-107); Glucose 84 mg/dL (74-99); Non-African American GFR(CKD) 5 (>60 ml/min/1.73 sqM); Potassium 5.7 mmol/L (3.5-5.1); Sodium 135 mmol/L (137-145); Total Bilirubin 1.2 mg/dL (0.2-1.3); Total Protein 6.3 g/dL (6.3-8.2)
[2024-02-03 04:31] LABS: Basophils % (A) 0 %; Eosinophils # (A) 0.1 k/uL (0-0.7); Eosinophils % (A) 1 %; HCT 35.1 % (39.0-53.0); HGB 11.3 gm/dL (13.0-17.5); Hypochromasia Slight; Lymphocytes # (A) 0.6 k/uL (1.0-4.8); Lymphocytes % (A) 12 %; MCH 30.6 pg (25.0-35.0); MCHC 32.1 g/dL (31.0-37.0); MCV 95.5 fL (80.0-100.0); Mean Platelet Volume 7.4; Monocytes # (A) 0.3 k/uL (0-1.0); Monocytes % (A) 7 %; Neutrophils # (A) 3.7 k/uL (1.3-7.7); Neutrophils % (A) 77 %; Platelet Count 173 k/uL (150-450); RBC 3.68 m/uL (4.30-5.90); RDW 14.5 % (11.5-15.5); WBC 4.8 k/uL (3.8-10.6)
--- NOTE | 2024-02-03 07:27 | P.PN ---
Subjective Progress Note Date: 02/03/24 PROGRESS NOTE The patient is a 63-year-old male, end-stage renal disease status post transplant that failed his on hemodialysis and presented with abdominal discomfort and small bowel obstruction. He was transferred to the ICU because of hypotension. He had a run of SVT and cardiology consultation was requested. He is in sinus mechanism at this time on IV Cardizem. He is hemodynamically stable. He denies any chest discomfort, dizziness or palpitations. He has no significant dyspnea. He has a history of COPD. He is followed by clinical laboratory medical director at [facility] and had a prior stenting about 5 years ago and has a history of peripheral vascular disease with femorofemoral bypass. He has no clear PND, orthopnea or peripheral edema. He cannot recall a prior documented history of malignant arrhythmia. His ejection fraction estimation is not available to me. He has an NG tube and feels better with minimal flatus but improvement in his abdominal discomfort. He has no history of smoking. He had a history of renal disease at a young age. He has no urinary output. He has a history of hyperlipidemia, he is nondiabetic. February 02: The patient feels better today, his abdominal pain is better. He denies any chest discomfort, dizziness or palpitations. He continues to be in sinus mechanism. He continues to have an NG tube. He is on IV Cardizem. He ambulated yesterday without significant difficulties. His echocardiogram showed an ejection fraction of 45 to 50% with mild aortic stenosis and mild mitral regurgitation. Medications: IV Cardizem, aspirin, midodrine, pravastatin 40 mg daily PHYSICAL EXAMINATION: Blood pressure 103/60 heart rate 72 LUNGS: Clear to auscultation HEART: Regular rate and rhythm, S1, S2. No S3. Systolic ejection murmur at the base with a holosystolic murmur at the apex, 2/6 ABDOMEN: Soft, nontender, no organomegaly, positive bowel sounds EXTREMETIES: No edema LAB: Hemoglobin 11.3, BUN 63, creatinine 9.76. IMPRESSION: 1. Small bowel obstruction versus ileus, improving 2. History of CAD with no evidence of ACS 3. 1 episode of SVT, resolved 4. History of peripheral vascular disease status post femorofemoral bypass 5. End-stage renal disease, post transplant 6. Hyperlipidemia PLAN: 1. Once able to take oral medication start metoprolol 25 mg twice a day 2. Dialysis per nephrology 3. Change pravastatin to atorvastatin in view of cardiac history 4. Depending on his progress further recommendations will be made Objective - Vital Signs Vital signs: Vital Signs Temp 98.0 F 02/03/24 06:00 Pulse 72 02/03/24 07:00 Resp 20 02/03/24 07:00 BP 103/58 02/03/24 07:00 Pulse Ox 92 L 02/03/24 07:00 FiO2 Intake & Output 02/02/24 02/03/24 02/03/24 18:59 06:59 18:59 Intake Total 800 900 75 Output Total 150 300 Balance 650 600 75 Weight 80.7 kg Intake: IV 375 900 75 Sodium Chloride 0.9% 1, 375 900 75 000 ml @ 75 mls/hr IV . [id number] [facility] Rx#:[id number] Intake, IV Titration 425 Amount Diltiazem 125 mg In 125 Sodium Chloride 0.9% 100 ml @ 10 MG/HR 10 mls/hr IV .[id number] [facility] Rx#: [id number] Sodium Chloride 0.9% 1, 300 000 ml @ 75 mls/hr IV . [id number] [facility] Rx#:[id number] Output: Gastric Drainage 150 300 Urine 0 0 Other: # Bowel Movements 0 - Labs CBC & Chem 7: 02/03/24 02:45 02/03/24 02:45 Labs: Abnormal Lab Results - Last 24 Hours (Table) 02/02/24 02/03/24 02/03/24 Range/Units 06:09 02:45 02:45 RBC 3.68 L (4.30-5.90) m/uL Hgb 11.3 L (13.0-17.5) gm/dL Hct 35.1 L (39.0-53.0) % Lymphocytes # 0.6 L (1.0-4.8) k/uL Sodium 136 L 135 L (137-145) mmol/L Potassium 5.3 H 5.7 H (3.5-5.1) mmol/L Chloride 92 L 93 L (98-107) mmol/L BUN 49 H 63 H (9-20) mg/dL Creatinine 7.91 H* 9.76 H* (0.66-1.25) mg/dL Glucose 104 H (74-99) mg/dL AST 15 L (17-59) U/L
[2024-02-03] MEDS: ATORVASTATIN 40 MG TAB PO SCH (08:49)
[2024-02-03] MEDS: METOPROLOL TARTRATE 25 MG TAB PO SCH (08:51)
--- NOTE | 2024-02-03 10:33 | P.PN ---
Subjective Patient is seen in follow-up for end-stage renal disease. He is maintained on hemodialysis on Tuesday schedule. Currently in the ICU. Hemodynamically stable. NG tube clamped. Vital signs are stable. General: No acute distress. HEENT: NG tube noted. LUNGS: No audible rhonchi or wheezes. HEART: Regular rate and rhythm. ABDOMEN: Nontender. EXTREMITITES: No edema. Objective - Vital Signs Vital signs: Vital Signs Temp 98.9 F 02/03/24 08:00 Pulse 73 02/03/24 09:00 Resp 19 02/03/24 09:00 BP 104/80 02/03/24 09:00 Pulse Ox 91 L 02/03/24 09:00 FiO2 Intake & Output 02/02/24 02/03/24 02/03/24 18:59 06:59 18:59 Intake Total 800 900 325 Output Total 150 300 0 Balance 650 600 325 Weight 80.7 kg Intake: IV 375 900 225 Sodium Chloride 0.9% 1, 375 900 225 000 ml @ 75 mls/hr IV . [id number] [facility] Rx#:[id number] Intake, IV Titration 425 Amount Diltiazem 125 mg In 125 Sodium Chloride 0.9% 100 ml @ 10 MG/HR 10 mls/hr IV .[id number] [facility] Rx#: [id number] Sodium Chloride 0.9% 1, 300 000 ml @ 75 mls/hr IV . [id number] [facility] Rx#:[id number] Oral 100 Output: Gastric Drainage 150 300 Urine 0 0 0 Other: # Bowel Movements 0 0 - Labs CBC & Chem 7: 02/03/24 02:45 02/03/24 02:45 Labs: Abnormal Lab Results - Last 24 Hours (Table) 02/03/24 02/03/24 Range/Units 02:45 02:45 RBC 3.68 L (4.30-5.90) m/uL Hgb 11.3 L (13.0-17.5) gm/dL Hct 35.1 L (39.0-53.0) % Lymphocytes # 0.6 L (1.0-4.8) k/uL Sodium 135 L (137-145) mmol/L Potassium 5.7 H (3.5-5.1) mmol/L Chloride 93 L (98-107) mmol/L BUN 63 H (9-20) mg/dL Creatinine 9.76 H* (0.66-1.25) mg/dL AST 15 L (17-59) U/L Assessment and Plan Plan: Assessment: 1. End-stage renal disease maintained on hemodialysis on Tuesday schedule. 2. Abdominal pain due to ileus versus bowel obstruction. Surgery following. Has NG tube. 3. Coronary disease with cardiac stenting. 4. Peripheral vascular disease status post surgical invention in the past. Patient follows with vascular surgery from [facility]. 5. Chronic kidney disease mineral bone disease maintained on Sensipar and PhosLo outpatient. 6. History of hepatitis B maintained on tenofovir. 7. Hyperkalemia secondary to chronic kidney disease. 8. SVTs status post Cardizem drip. Plan: Hemodialysis today. Hep-Lock IV fluids once diet initiated.
--- NOTE | 2024-02-03 12:42 | XR ---
EXAMINATION TYPE: XR abdomen 2V DATE OF EXAM: 02/03/2024 COMPARISON: 02/01/2024 INDICATION: Obstruction TECHNIQUE: Single view abdomen supine and upright views FINDINGS: There is a normal bowel gas pattern. Nonspecific small bowel gas is present. Psoas margins are normal. No organomegaly is present. There is a large calcified area within the mid abdomen. As present on the comparison CT. Some aneurys mal dilatation of the right common iliac artery of 3.1 cm. Nasogastric tube tip in the proximal left upper quadrant of the abdomen. Splenic artery calcification s present. IMPRESSION: 1. Unremarkable Abdomen 2. Aneurysmal dilatation of the right common iliac artery. 3. Calcified area within the mid abdomen [facility] Russell Glaser, , 02/03/2024 12:39 PM
--- NOTE | 2024-02-03 13:30 | P.PN ---
Subjective Progress Note Date: 02/03/24 This is a 63-year-old male patient who got transferred to the ICU because of hypotension. The patient is admitted currently for small bowel obstruction. The patient is known to have end-stage renal disease on hemodialysis and his last hemodialysis session was yesterday. He gets dialyzed MWF. He has had previous kidney transplantation and has essentially failed. He has had previous surgeries in his abdomen for transplantation. He presented to the hospital because of abdominal pain, cramping, nausea and emesis and his last bowel movement was around 4 days ago. CAT scan of the abdomen showed dilated small bowel consistent with ileus/small bowel obstruction. General surgery is on the case. Because of ongoing discomfort, NG tube was inserted and immediately approximately 2 L of gastric material was aspirated. Subsequently patient became hypotensive. He starts cardiac blood pressure is was in the mid 70s. He got transferred to the ICU. Given half a liter of normal saline and the current blood pressure is 113/61. He is awake and alert. He is currently on room air oxygen with a pulse ox of 99%. No significant tachycardia. No reported fever. The white cell count is at 6.2 with a hemoglobin of 11.5 and a platelet count of 166. BUN 65 with a creatinine of 9.7 and the patient's potassium level is at 5.8 and a sodium level of 136. Amylase and lipase are within normal limits. LFTs are within normal limits. CAT scan of the abdomen also showed a loculated pleural effusion in the left lung base above the left hemidiaphragm with a calcified rim which is a sequelae of previous pneumonia/parapneumonic effusion. He has another calcified rim collection in the mid pelvis. Denies having any cough or sputum production. No significant respiratory distress. (Done 4 hours during the 02/02/2024, the patient is being seen for a follow-up. NG tube is still in place and the patient denies having any significant nausea or vomiting and no significant abdominal pains on today's evaluation. The patient has produced approximately 3.3 L of gastric output since insertion of the NG tube. Currently, IV fluids are at KVO. The patient underwent hemodialysis yesterday with ultrafiltration of 500 cc of fluids. No fever. No chills. No tachycardia. He did encounter a run of SVT yesterday and based on that, the patient was started on a Cardizem drip which is running at 10 mg an hour. Currently, he is in normal sinus rhythm. Cardiology has been consulted. The white cell count is at 5 with a hemoglobin 11.3 and a platelet count of 153. Sodium is at 136, potassium is at 5.3, BUN is 49 with a creatinine of 7.9 and the patient serum bicarb is at 23. LFTs are all within normal limits. Amylase and lipase are also within normal limits. A follow-up small bowel x-ray that was done today showed limited examination with no contrast seen in the colon. Bowel obstruction is likely still present. The patient has no altered mentation. Communicating. Denies having any specific complaints.Echocardiogram was completed yesterday and the patient was found to have LV ejection fraction of 45 to 50%. There was also mild increase in the septal wall thickness. Increase in the left ventricular volume systolic. No significant valvular abnormalities other than some mild degree of aortic stenosis. On 02/03/2024, the patient is being seen for a follow-up. The patient is doing well with no specific complaints. No nausea vomiting or abdominal pain. The patient is passing flatus. NG tube has been clamped. The patient is also taking some popsicles and ice chips. Otherwise, hemodynamically stable. No angina or palpitation. No shortness of breath. No chest pain. The white cell count is at 4.8 with hemoglobin of 11.3 and a platelet count of 173. BUN 63 with a creatinine of 9.7 and the patient's potassium level is at 5.7. The patient is going to undergo another session of hemodialysis today. No other significant events overnight. Respiratory status is stable and the patient is currently on room air oxygen. No other significant events overnight. First t bernard of the abdomen was done today and it showed an unremarkable abdomen. Aneurysmal dilatation of the right common iliac artery was noted. Objective - Vital Signs Vital signs: Vital Signs Temp 98.0 F 02/03/24 06:00 Pulse 73 02/03/24 08:08 Resp 20 02/03/24 07:00 BP 103/58 02/03/24 07:00 Pulse Ox 92 L 02/03/24 07:00 FiO2 Intake & Output 02/02/24 02/03/24 02/03/24 18:59 06:59 18:59 Intake Total 800 900 75 Output Total 150 300 Balance 650 600 75 Weight 80.7 kg Intake: IV 375 900 75 Sodium Chloride 0.9% 1, 375 900 75 000 ml @ 75 mls/hr IV . [id number] [facility] Rx#:[id number] Intake, IV Titration 425 Amount Diltiazem 125 mg In 125 Sodium Chloride 0.9% 100 ml @ 10 MG/HR 10 mls/hr IV .[id number] [facility] Rx#: [id number] Sodium Chloride 0.9% 1, 300 000 ml @ 75 mls/hr IV . [id number] [facility] Rx#:[id number] Output: Gastric Drainage 150 300 Urine 0 0 Other: # Bowel Movements 0 - Exam - Constitutional General appearance: no acute distress, NG tube still in place. NG tube is currently clamped. - EENT Eyes: EOMI Ears: negative: bulging, bullous, dull, erythema, fluid, myringotomy tube, obstructed by cerumen, scarring, unable to vistualize, other - Neck Neck: no lymphadenopathy Carotids: negative: upstroke normal, upstroke delayed, upstroke diminished, upstroke bounding, bruit absent, bruit present Thyroid: negative: normal size, enlarged, firm, nodule - Respiratory Respiratory: negative: CTA, diminished, dullness, rales, rhonchi, wheezing, prolonged expiration, prolonged inspiration, other - Cardiovascular Rhythm: regular Heart sounds: abnormal: S1, S2 - Gastrointestinal General gastrointestinal: absent bowel sounds - Integumentary Integumentary: normal, normal turgor - Neurologic Neurologic: CNII-XII intact - Musculoskeletal Musculoskeletal: gait normal - Psychiatric Psychiatric: A&O x's 3 (Soft, well-healed surgical scarring, nondistended, no rebound or guarding, tenderness to palpation in bilateral lower quadrants) - Labs CBC & Chem 7: 02/03/24 02:45 02/03/24 02:45 Labs: Abnormal Lab Results - Last 24 Hours (Table) 02/02/24 02/03/24 02/03/24 Range/Units 06:09 02:45 02:45 RBC 3.68 L (4.30-5.90) m/uL Hgb 11.3 L (13.0-17.5) gm/dL Hct 35.1 L (39.0-53.0) % Lymphocytes # 0.6 L (1.0-4.8) k/uL Sodium 136 L 135 L (137-145) mmol/L Potassium 5.3 H 5.7 H (3.5-5.1) mmol/L Chloride 92 L 93 L (98-107) mmol/L BUN 49 H 63 H (9-20) mg/dL Creatinine 7.91 H* 9.76 H* (0.66-1.25) mg/dL Glucose 104 H (74-99) mg/dL AST 15 L (17-59) U/L Assessment and Plan Plan: Small bowel obstruction/ileus probably due to abdominal adhesions the patient has undergone previous abdominal surgeries for renal transplantation. Patient is status post NG tube decompression with evacuation of approximately 3.5 L of gastric material. The patient's NG tube remains in place. No nausea or vomiting or abdominal pain. General surgery is on the case. Hemodynamically stable. The NG tube output is minimal and the patient is producing flatus. X- ray of the abdomen today shows nonspecific and unremarkable findings. Hypovolemic shock with secondary hypotension, responded to IV fluids. The patient is currently normotensive End-stage renal disease on hemodialysis 3 times a week, MWF, underwent a short session of hemodialysis on 02/01/2024 with a ultrafiltration of 500 cc. Mild hyperkalemia related to end-stage renal disease History of kidney transplantation x 2 History of hepatitis B Hypertension, history of Hyperlipidemia COPD Chronic pleural fluid and mid abdominal fluid collection with a calcified rim. The first is most likely a sequela of a previous pneumonia and parapneumonic effusion. The second is most likely related to previous abdominal surgeries. Those are benign findings SVT, currently back into normal sinus rhythm and the patient is currently on Cardizem drip at 10 mg an hour. CHF with mild impairment of LV function and mild aortic stenosis. Plan Keep the patient n.p.o. NG tube has been clamped. If able to tolerate the clamping of the NG tube for the next few hours, we will going to remove the NG tube X-ray of the abdomen was noted General surgery consultation Hemodialysis to be done today Consult cardiology Monitor electrolytes Lactic acid level is not elevated Nephrology consultation Will continue to follow
--- NOTE | 2024-02-03 14:29 | P.PN ---
Subjective Patient seen and evaluated at bedside. Denies abdominal pain, passing flatus. Denies nausea or vomiting. Objective - Vital Signs Vital signs: Vital Signs Temp 97.8 F 02/03/24 13:25 Pulse 70 02/03/24 14:00 Resp 14 02/03/24 14:00 BP 103/56 02/03/24 14:00 Pulse Ox 100 02/03/24 14:00 FiO2 Intake & Output 02/02/24 02/03/24 02/03/24 18:59 06:59 18:59 Intake Total 226 803 8349 Output Total 150 300 400 Balance 650 600 700 Weight 80.7 kg Intake: IV 375 900 600 Sodium Chloride 0.9% 1, 375 900 600 000 ml @ 75 mls/hr IV . [id number] [facility] Rx#:[id number] Intake, IV Titration 425 Amount Diltiazem 125 mg In 125 Sodium Chloride 0.9% 100 ml @ 10 MG/HR 10 mls/hr IV .[id number] [facility] Rx#: [id number] Sodium Chloride 0.9% 1, 300 000 ml @ 75 mls/hr IV . [id number] [facility] Rx#:[id number] Oral 100 Hemodialysis 400 Output: Gastric Drainage 150 300 Urine 0 0 0 Hemodialysis 400 Hemodialysis Net Amount 0 Other: # Bowel Movements 0 0 - Labs CBC & Chem 7: 02/03/24 02:45 02/03/24 02:45 Labs: Abnormal Lab Results - Last 24 Hours (Table) 02/03/24 02/03/24 Range/Units 02:45 02:45 RBC 3.68 L (4.30-5.90) m/uL Hgb 11.3 L (13.0-17.5) gm/dL Hct 35.1 L (39.0-53.0) % Lymphocytes # 0.6 L (1.0-4.8) k/uL Sodium 135 L (137-145) mmol/L Potassium 5.7 H (3.5-5.1) mmol/L Chloride 93 L (98-107) mmol/L BUN 63 H (9-20) mg/dL Creatinine 9.76 H* (0.66-1.25) mg/dL AST 15 L (17-59) U/L Assessment and Plan Assessment: 63 yo male with ileus vs small bowel obstruction -we will continue medical management -passing gas, we will attempt clamping of nasogastric tube again as patient is clinically doing well Time with Patient: Less than 30
--- NOTE | 2024-02-03 14:30 | P.PN ---
Subjective Progress Note Date: 02/03/24 Evaluated patient today in the intensive care unit resting in bed. Not reporting any specific abdominal pain with the exception of some mild tenderness with palpation. NG tube was placed yesterday with 2L of gastric output. Ended up in the ICU secondary to hypotension. NG tube currently in place and patient is NPO. He is not passing gas. Underwent small bowel follow through this AM showing limited exam terminated at 330 minutes with no contrast seen within the colon. Bowel obstruction in the differential diagnosis, correlate for constipation. Sodium 136, potassium 5.3, BUN 49, creatinine 7.91. Was placed on IV cardizem overnight due to episode of SVT. Remains on cardizem running at 10 mls/hr. On n ormal saline at 75 mls/hr. 02/03/2024 Patient is evaluated in follow-up remains in the intensive care unit he has been downgraded to the medical floor pending a bed. Patient states that he is passi ng a lot of gas but has not had a bowel movement yet. Abdominal x-ray today reveals markable been there is aneurysmal dilation of the right common iliac artery with wide area within the mid abdomen. Patient remains n.p.o. at this time. He is currently undergoing hemodialysis per nephrology. Cardizem has been discontinued patient remains in normal sinus rhythm. Review of Systems Constitutional: Denied any fatigue denied any fever. Cardio vascular: denied any chest pain, palpitations Gastrointestinal: denied any nausea, vomiting, diarrhea Pulmonary: Denied any shortness of breath cough Neurologic denied any new focal deficits All inpatient medications were reviewed and appropriate changes in these medications as dictated in the interval history and assessment and plan. PHYSICAL EXAMINATION: GENERAL: The patient is alert and oriented x3, not in any acute distress. Well developed, well nourished. HEENT: Pupils are round and equally reacting to light. EOMI. No scleral icterus. No conjunctival pallor. Normocephalic, atraumatic. No pharyngeal erythema. No thyromegaly. CARDIOVASCULAR: S1 and S2 present. No murmurs, rubs, or gallops. PULMONARY: Chest is clear to auscultation, no wheezing or crackles. ABDOMEN: Soft, nontender, nondistended, normoactive bowel sounds. No palpable organomegaly. NG tube in place MUSCULOSKELETAL: No joint swelling or deformity. EXTREMITIES: No cyanosis, clubbing, or pedal edema. NEUROLOGICAL: Gross neurological examination did not reveal any focal deficits. SKIN: No rashes. Assessment Small bowel obstruction vs. Ileus; NG tube in place patient remains NPO, General surgery following End stage renal disease maintained on hemodialysis Episode of SVT Hyperkalemia Chronic pleural effusion Hx of left kidney transplant Hepatitis B COPD with no acute exacerbation Gastroesophageal reflux disease Hypertension Hyperlipidemia Former Smoker GI prophylaxis DVT prophylaxis Full Code Plan Continue NG tube NPO diet and bowel rest IV cardizem has been discontinued patient has been placed on oral metoprolol General surgery following Nephrology following, continue hemodialysis MWF Repeat blood work in the AM. Continue to monitor patient closely in the ICU has been downgrade to the medical floor. The impression and plan of care has been dictated by Shey Sue Nurse Practitioner as directed. Dr. Ashkan MD I have performed a history and physical examination and medical decision making of this patient, discussed the same with the dictator, and agree with the dictators assessment and plan as written, documented as a scribe. Based on total visit time, I have performed more than 50% of this visit. Objective - Vital Signs Vital signs: Vital Signs Temp 98.0 F 02/03/24 06:00 Pulse 73 02/03/24 08:08 Resp 20 02/03/24 07:00 BP 103/58 02/03/24 07:00 Pulse Ox 92 L 02/03/24 07:00 FiO2 Intake & Output 02/02/24 02/03/24 02/03/24 18:59 06:59 18:59 Intake Total 800 900 75 Output Total 150 300 Balance 650 600 75 Weight 80.7 kg Intake: IV 375 900 75 Sodium Chloride 0.9% 1, 375 900 75 000 ml @ 75 mls/hr IV . [id number] [facility] Rx#:[id number] Intake, IV Titration 425 Amount Diltiazem 125 mg In 125 Sodium Chloride 0.9% 100 ml @ 10 MG/HR 10 mls/hr IV .[id number] [facility] Rx#: [id number] Sodium Chloride 0.9% 1, 300 000 ml @ 75 mls/hr IV . [id number] [facility] Rx#:[id number] Output: Gastric Drainage 150 300 Urine 0 0 Other: # Bowel Movements 0 - Labs CBC & Chem 7: 02/05/24 08:03 02/05/24 08:03 Labs: Abnormal Lab Results - Last 24 Hours (Table) 02/02/24 02/03/24 02/03/24 Range/Units 06:09 02:45 02:45 RBC 3.68 L (4.30-5.90) m/uL Hgb 11.3 L (13.0-17.5) gm/dL Hct 35.1 L (39.0-53.0) % Lymphocytes # 0.6 L (1.0-4.8) k/uL Sodium 136 L 135 L (137-145) mmol/L Potassium 5.3 H 5.7 H (3.5-5.1) mmol/L Chloride 92 L 93 L (98-107) mmol/L BUN 49 H 63 H (9-20) mg/dL Creatinine 7.91 H* 9.76 H* (0.66-1.25) mg/dL Glucose 104 H (74-99) mg/dL AST 15 L (17-59) U/L Assessment and Plan Time with Patient: Less than 30
[2024-02-04 06:33] LABS: Basophils % (A) 1 %; Eosinophils # (A) 0.1 k/uL (0-0.7); Eosinophils % (A) 4 %; HCT 30.7 % (39.0-53.0); HGB 10.3 gm/dL (13.0-17.5); Lymphocytes # (A) 0.6 k/uL (1.0-4.8); Lymphocytes % (A) 20 %; MCH 31.3 pg (25.0-35.0); MCHC 33.7 g/dL (31.0-37.0); MCV 92.9 fL (80.0-100.0); Mean Platelet Volume 7.8; Monocytes # (A) 0.2 k/uL (0-1.0); Monocytes % (A) 8 %; Neutrophils % (A) 65 %; Platelet Count 166 k/uL (150-450); RDW 14.8 % (11.5-15.5)
[2024-02-04 07:35] LABS: ALT 8 U/L (4-49); AST 15 U/L (17-59); African American GFR (CKD) 10 (>60 ml/min/1.73 sqM); Albumin 3.2 g/dL (3.5-5.0); Alkaline Phosphatase 69 U/L (38-126); Anion Gap 14 mmol/L; Blood Urea Nitrogen 37 mg/dL (9-20); Calcium 8.6 mg/dL (8.4-10.2); Carbon Dioxide 25 mmol/L (22-30); Chloride 93 mmol/L (98-107); Glucose 80 mg/dL (74-99); Non-African American GFR(CKD) 9 (>60 ml/min/1.73 sqM); Potassium 4.2 mmol/L (3.5-5.1); Sodium 132 mmol/L (137-145); Total Bilirubin 0.8 mg/dL (0.2-1.3); Total Protein 5.6 g/dL (6.3-8.2)
--- NOTE | 2024-02-04 11:54 | P.PN ---
Subjective Patient is seen in follow-up for end-stage renal disease. He is maintained on hemodialysis on Tuesday schedule. Transferred out of the ICU. NG tube removed. Will be starting regular diet this afternoon. Vital signs are stable. General: No acute distress. HEENT: On room air. LUNGS: No audible rhonchi or wheezes. HEART: Regular rate and rhythm. ABDOMEN: Nontender. EXTREMITITES: No edema. Objective - Vital Signs Vital signs: Vital Signs Temp 97.6 F 02/04/24 08:00 Pulse 64 02/04/24 08:59 Resp 18 02/04/24 08:00 BP 112/59 02/04/24 08:00 Pulse Ox 98 02/04/24 08:00 FiO2 Intake & Output 02/03/24 02/04/24 02/04/24 18:59 06:59 18:59 Intake Total 1750 280 Output Total 400 0 Balance 1350 280 Weight 79.5 kg Intake: IV 750 40 Invasive Line 1 20 Invasive Line 3 20 Sodium Chloride 0.9% 1, 750 000 ml @ 75 mls/hr IV . [id number] [facility] Rx#:[id number] Oral 600 240 Hemodialysis 400 Output: Urine 0 0 Hemodialysis 400 Hemodialysis Net Amount 0 Other: Voiding Method Toilet Urinal # Bowel Movements 0 - Labs CBC & Chem 7: 02/04/24 05:38 02/04/24 05:38 Labs: Abnormal Lab Results - Last 24 Hours (Table) 02/04/24 02/04/24 Range/Units 05:38 05:38 WBC 3.0 L (3.8-10.6) k/uL RBC 3.30 L (4.30-5.90) m/uL Hgb 10.3 L (13.0-17.5) gm/dL Hct 30.7 L (39.0-53.0) % Lymphocytes # 0.6 L (1.0-4.8) k/uL Sodium 132 L (137-145) mmol/L Chloride 93 L (98-107) mmol/L BUN 37 H (9-20) mg/dL Creatinine 6.31 H (0.66-1.25) mg/dL AST 15 L (17-59) U/L Total Protein 5.6 L (6.3-8.2) g/dL Albumin 3.2 L (3.5-5.0) g/dL Assessment and Plan Plan: Assessment: 1. End-stage renal disease maintained on hemodialysis on Tuesday schedule. 2. Abdominal pain due to ileus versus bowel obstruction. Surgery following. NG tube removed. 3. Coronary artery disease with cardiac stenting. 4. Peripheral vascular disease status post surgical invention in the past. Patient follows with vascular surgery from [facility]. 5. Chronic kidney disease mineral bone disease maintained on Sensipar and PhosLo outpatient. 6. History of hepatitis B maintained on tenofovir. 7. Hyperkalemia secondary to chronic kidney disease. Improved postdialysis. 8. SVTs status post Cardizem drip. Heart rate controlled. Plan: Hemodialysis Tuesday. Off IV fluids. Check phosphorus level tomorrow.
--- NOTE | 2024-02-04 12:32 | P.PN ---
Subjective Progress Note Date: 02/04/24 The patient is a 63-year-old male, end-stage renal disease status post transplant that failed his on hemodialysis and presented with abdominal discomfort and small bowel obstruction. He was transferred to the ICU because of hypotension. He had a run of SVT and cardiology consultation was requested. He is in sinus mechanism at this time on IV Cardizem. He is hemodynamically stable. He denies any chest discomfort, dizziness or palpitations. He has no significant dyspnea. He has a history of COPD. He is followed by steam and gas turbines assembler at [facility] and had a prior stenting about 5 years ago and has a history of peripheral vascular disease with femorofemoral bypass. He has no clear PND, orthopnea or peripheral edema. He cannot recall a prior documented history of malignant arrhythmia. His ejection fraction estimation is not available to me. He has an NG tube and feels better with minimal flatus but improvement in his abdominal discomfort. He has no history of smoking. He had a history of renal disease at a young age. He has no urinary output. He has a history of hyperlipidemia, he is nondiabetic. February 02: The patient feels better today, his abdominal pain is better. He denies any chest discomfort, dizziness or palpitations. He continues to be in sinus mechanism. He continues to have an NG tube. He is on IV Cardizem. He ambulated yesterday without significant difficulties. His echocardiogram showed an ejection fraction of 45 to 50% with mild aortic stenosis and mild mitral regurgitation. 02/04/2024 Patient was seen and examined resting comfortably in bed. Is overall feeling better he is tolerating a clear liquid diet. Has been initiated on metoprolol 25 mg p.o. twice daily. He underwent dialysis yesterday. Labs this morning showed potassium 4.2, BUN 37 and creatinine of 6.31. He has had no palpitations, dizziness or lightheadedness. His breathing is stable. He has had no orthopnea or PND. He has had no chest discomfort. He is eager to be di scharged home as his daughter is getting next weekend. Objective - Vital Signs Vital signs: Vital Signs Temp 97.6 F 02/04/24 08:00 Pulse 64 02/04/24 08:59 Resp 18 02/04/24 08:00 BP 112/59 02/04/24 08:00 Pulse Ox 98 02/04/24 08:00 FiO2 Intake & Output 02/03/24 02/04/24 02/04/24 18:59 06:59 18:59 Intake Total 1750 280 Output Total 400 0 Balance 1350 280 Weight 79.5 kg Intake: IV 750 40 Invasive Line 1 20 Invasive Line 3 20 Sodium Chloride 0.9% 1, 750 000 ml @ 75 mls/hr IV . [id number] [facility] Rx#:[id number] Oral 600 240 Hemodialysis 400 Output: Urine 0 0 Hemodialysis 400 Hemodialysis Net Amount 0 Other: Voiding Method Toilet Urinal # Bowel Movements 0 - Exam PHYSICAL EXAMINATION: Blood pressure 103/60 heart rate 72 LUNGS: Clear to auscultation HEART: Regular rate and rhythm, S1, S2. No S3. Systolic ejection murmur at the base with a holosystolic murmur at the apex, 2/6 ABDOMEN: Soft, nontender, no organomegaly, positive bowel sounds EXTREMETIES: No edema - Labs CBC & Chem 7: 02/04/24 05:38 02/04/24 05:38 Labs: Abnormal Lab Results - Last 24 Hours (Table) 02/04/24 02/04/24 Range/Units 05:38 05:38 WBC 3.0 L (3.8-10.6) k/uL RBC 3.30 L (4.30-5.90) m/uL Hgb 10.3 L (13.0-17.5) gm/dL Hct 30.7 L (39.0-53.0) % Lymphocytes # 0.6 L (1.0-4.8) k/uL Sodium 132 L (137-145) mmol/L Chloride 93 L (98-107) mmol/L BUN 37 H (9-20) mg/dL Creatinine 6.31 H (0.66-1.25) mg/dL AST 15 L (17-59) U/L Total Protein 5.6 L (6.3-8.2) g/dL Albumin 3.2 L (3.5-5.0) g/dL Assessment and Plan Assessment: 1. Small bowel obstruction versus ileus, improving 2. History of CAD with no evidence of ACS 3. 1 episode of SVT, resolved 4. History of peripheral vascular disease status post femorofemoral bypass 5. End-stage renal disease, post transplant 6. Hyperlipidemia Plan: From cardiology's perspective medications were reviewed and we will continue the same. We anticipate the patient will be discharged home soon. He will follow- up as an outpatient with his primary steam and gas turbines assembler Dr. Porter. EMERGENCY MANAGEMENT SPECIALIST note has been reviewed, I agree with a documented findings and plan of care. Patient was seen and examined.
[2024-02-04 12:52] VITALS: RESP 18
--- NOTE | 2024-02-04 14:30 | P.PN ---
Subjective Progress Note Date: 02/04/24 This is a 63-year-old male patient who got transferred to the ICU because of hypotension. The patient is admitted currently for small bowel obstruction. The patient is known to have end-stage renal disease on hemodialysis and his last hemodialysis session was yesterday. He gets dialyzed MWF. He has had previous kidney transplantation and has essentially failed. He has had previous surgeries in his abdomen for transplantation. He presented to the hospital because of abdominal pain, cramping, nausea and emesis and his last bowel movement was around 4 days ago. CAT scan of the abdomen showed dilated small bowel consistent with ileus/small bowel obstruction. General surgery is on the case. Because of ongoing discomfort, NG tube was inserted and immediately approximately 2 L of gastric material was aspirated. Subsequently patient became hypotensive. He starts cardiac blood pressure is was in the mid 70s. He got transferred to the ICU. Given half a liter of normal saline and the current blood pressure is 113/61. He is awake and alert. He is currently on room air oxygen with a pulse ox of 99%. No significant tachycardia. No reported fever. The white cell count is at 6.2 with a hemoglobin of 11.5 and a platelet count of 166. BUN 65 with a creatinine of 9.7 and the patient's potassium level is at 5.8 and a sodium level of 136. Amylase and lipase are within normal limits. LFTs are within normal limits. CAT scan of the abdomen also showed a loculated pleural effusion in the left lung base above the left hemidiaphragm with a calcified rim which is a sequelae of previous pneumonia/parapneumonic effusion. He has another calcified rim collection in the mid pelvis. Denies having any cough or sputum production. No significant respiratory distress. (Done 4 hours during the 02/02/2024, the patient is being seen for a follow-up. NG tube is still in place and the patient denies having any significant nausea or vomiting and no significant abdominal pains on today's evaluation. The patient has produced approximately 3.3 L of gastric output since insertion of the NG tube. Currently, IV fluids are at KVO. The patient underwent hemodialysis yesterday with ultrafiltration of 500 cc of fluids. No fever. No chills. No tachycardia. He did encounter a run of SVT yesterday and based on that, the patient was started on a Cardizem drip which is running at 10 mg an hour. Currently, he is in normal sinus rhythm. Cardiology has been consulted. The white cell count is at 5 with a hemoglobin 11.3 and a platelet count of 153. Sodium is at 136, potassium is at 5.3, BUN is 49 with a creatinine of 7.9 and the patient serum bicarb is at 23. LFTs are all within normal limits. Amylase and lipase are also within normal limits. A follow-up small bowel x-ray that was done today showed limited examination with no contrast seen in the colon. Bowel obstruction is likely still present. The patient has no altered mentation. Communicating. Denies having any specific complaints.Echocardiogram was completed yesterday and the patient was found to have LV ejection fraction of 45 to 50%. There was also mild increase in the septal wall thickness. Increase in the left ventricular volume systolic. No significant valvular abnormalities other than some mild degree of aortic stenosis. On 02/03/2024, the patient is being seen for a follow-up. The patient is doing well with no specific complaints. No nausea vomiting or abdominal pain. The patient is passing flatus. NG tube has been clamped. The patient is also taking some popsicles and ice chips. Otherwise, hemodynamically stable. No angina or palpitation. No shortness of breath. No chest pain. The white cell count is at 4.8 with hemoglobin of 11.3 and a platelet count of 173. BUN 63 with a creatinine of 9.7 and the patient's potassium level is at 5.7. The patient is going to undergo another session of hemodialysis today. No other significant events overnight. Respiratory status is stable and the patient is currently on room air oxygen. No other significant events overnight. First t bernard of the abdomen was done today and it showed an unremarkable abdomen. Aneurysmal dilatation of the right common iliac artery was noted. On 02/04/2024, seen the patient for a follow-up. Patient is able to tolerate clear liquid diet. Denies having any nausea or vomiting or chest pain or abdominal pain. He has a history of renal disease and is currently on hemodialysis. On today's blood work, sodium is at 132, BUN 37 with a creatinine of 6.3. White cell count is at 3 with a heme of 7.3 and a platelet count of 166. He is afebrile. He is hemodynamically stable. He is ambulating. Using the incentive spirometer. No other significant events overnight. The patient got transferred out of the intensive care unit today. Objective - Vital Signs Vital signs: Vital Signs Temp 98.2 F 02/04/24 04:00 Pulse 82 02/04/24 04:00 Resp 17 02/04/24 04:00 BP 97/54 02/04/24 04:00 Pulse Ox 96 02/04/24 04:00 FiO2 Intake & Output 02/03/24 02/04/24 02/04/24 18:59 06:59 18:59 Intake Total 1750 280 Output Total 400 0 Balance 1350 280 Weight 79.5 kg Intake: IV 750 40 Invasive Line 1 20 Invasive Line 3 20 Sodium Chloride 0.9% 1, 750 000 ml @ 75 mls/hr IV . [id number] [facility] Rx#:[id number] Oral 600 240 Hemodialysis 400 Output: Urine 0 0 Hemodialysis 400 Hemodialysis Net Amount 0 Other: Voiding Method Toilet Urinal # Bowel Movements 0 - Exam - Constitutional General appearance: no acute distress, NG tube removed - EENT Eyes: EOMI Ears: negative: bulging, bullous, dull, erythema, fluid, myringotomy tube, obstructed by cerumen, scarring, unable to vistualize, other - Neck Neck: no lymphadenopathy Carotids: negative: upstroke normal, upstroke delayed, upstroke diminished, upstroke bounding, bruit absent, bruit present Thyroid: negative: normal size, enlarged, firm, nodule - Respiratory Respiratory: negative: CTA, diminished, dullness, rales, rhonchi, wheezing, prolonged expiration, prolonged inspiration, other - Cardiovascular Rhythm: regular Heart sounds: abnormal: S1, S2 - Gastrointestinal General gastrointestinal: Positive bowel sounds are present, abdomen is Soft, well-healed surgical scarring, nondistended, no rebound or guarding, tenderness to palpation in bilateral lower quadrants - Integumentary Integumentary: normal, normal turgor - Neurologic Neurologic: CNII-XII intact - Musculoskeletal Musculoskeletal: gait normal - Psychiatric Psychiatric: A&O x's 3 - Labs CBC & Chem 7: 02/04/24 05:38 02/04/24 05:38 Labs: Abnormal Lab Results - Last 24 Hours (Table) 02/04/24 02/04/24 Range/Units 05:38 05:38 WBC 3.0 L (3.8-10.6) k/uL RBC 3.30 L (4.30-5.90) m/uL Hgb 10.3 L (13.0-17.5) gm/dL Hct 30.7 L (39.0-53.0) % Lymphocytes # 0.6 L (1.0-4.8) k/uL Sodium 132 L (137-145) mmol/L Chloride 93 L (98-107) mmol/L BUN 37 H (9-20) mg/dL Creatinine 6.31 H (0.66-1.25) mg/dL AST 15 L (17-59) U/L Total Protein 5.6 L (6.3-8.2) g/dL Albumin 3.2 L (3.5-5.0) g/dL Assessment and Plan Plan: Small bowel obstruction/ileus, recovered and the NG tube has been removed and the patient is tolerating clear liquid diet Hypovolemic shock with secondary hypotension, responded to IV fluids. The patient is currently normotensive End-stage renal disease on hemodialysis 3 times a week, MWF, underwent a short session of hemodialysis on 02/01/2024 with a ultrafiltration of 500 cc. Mild hyperkalemia related to end-stage renal disease History of kidney transplantation x 2 History of hepatitis B Hypertension, history of Hyperlipidemia COPD Chronic pleural fluid and mid abdominal fluid collection with a calcified rim. The first is most likely a sequela of a previous pneumonia and parapneumonic effusion. The second is most likely related to previous abdominal surgeries. Those are benign findings SVT, currently back into normal sinus rhythm and the patient is currently on Cardizem drip at 10 mg an hour. CHF with mild impairment of LV function and mild aortic stenosis. Plan Advance diet as tolerated and the patient is currently on clear liquid diet NG tube has been removed Hemodialysis was done yesterday Nephrology is on the case Will continue to follow The patient will be transferred out of the intensive care unit today. Encourage mobility. Room air oxygen. No respiratory distress.
--- NOTE | 2024-02-04 14:51 | P.PN ---
Subjective Patient seen and evaluated at bedside. Patient doing well, having bowel movements. Objective - Vital Signs Vital signs: Vital Signs Temp 97.6 F 02/04/24 08:00 Pulse 62 02/04/24 12:52 Resp 18 02/04/24 12:52 BP 112/59 02/04/24 08:00 Pulse Ox 97 02/04/24 12:00 FiO2 Intake & Output 02/03/24 02/04/24 02/04/24 18:59 06:59 18:59 Intake Total 1750 280 20 Output Total 400 0 Balance 1350 280 20 Weight 79.5 kg Intake: IV 750 40 20 Invasive Line 1 20 10 Invasive Line 3 20 10 Sodium Chloride 0.9% 1, 750 000 ml @ 75 mls/hr IV . [id number] [facility] Rx#:[id number] Oral 600 240 Hemodialysis 400 Output: Urine 0 0 Hemodialysis 400 Hemodialysis Net Amount 0 Other: Voiding Method Toilet Toilet Urinal Urinal # Bowel Movements 0 - Exam gen; nad cv: rrr pul: non lboared breathing abd: soft, non distended, non tender to palpation, no guarding or rebound tenderness - Labs CBC & Chem 7: 02/04/24 05:38 02/04/24 05:38 Labs: Abnormal Lab Results - Last 24 Hours (Table) 02/04/24 02/04/24 Range/Units 05:38 05:38 WBC 3.0 L (3.8-10.6) k/uL RBC 3.30 L (4.30-5.90) m/uL Hgb 10.3 L (13.0-17.5) gm/dL Hct 30.7 L (39.0-53.0) % Lymphocytes # 0.6 L (1.0-4.8) k/uL Sodium 132 L (137-145) mmol/L Chloride 93 L (98-107) mmol/L BUN 37 H (9-20) mg/dL Creatinine 6.31 H (0.66-1.25) mg/dL AST 15 L (17-59) U/L Total Protein 5.6 L (6.3-8.2) g/dL Albumin 3.2 L (3.5-5.0) g/dL Assessment and Plan Assessment: 63 yo male w/ resolving bowel obstruction -advance diet -discharge planning in the next 24hrs Time with Patient: Less than 30
--- NOTE | 2024-02-04 15:22 | P.PN ---
Subjective Progress Note Date: 02/04/24 Evaluated patient today in the intensive care unit resting in bed. Not reporting any specific abdominal pain with the exception of some mild tenderness with palpation. NG tube was placed yesterday with 2L of gastric output. Ended up in the ICU secondary to hypotension. NG tube currently in place and patient is NPO. He is not passing gas. Underwent small bowel follow through this AM showing limited exam terminated at 330 minutes with no contrast seen within the colon. Bowel obstruction in the differential diagnosis, correlate for constipation. Sodium 136, potassium 5.3, BUN 49, creatinine 7.91. Was placed on IV cardizem overnight due to episode of SVT. Remains on cardizem running at 10 mls/hr. On n ormal saline at 75 mls/hr. 02/03/2024 Patient is evaluated in follow-up remains in the intensive care unit he has been downgraded to the medical floor pending a bed. Patient states that he is passi ng a lot of gas but has not had a bowel movement yet. Abdominal x-ray today reveals markable been there is aneurysmal dilation of the right common iliac artery with wide area within the mid abdomen. Patient remains n.p.o. at this time. He is currently undergoing hemodialysis per nephrology. Cardizem has been discontinued patient remains in normal sinus rhythm. 02/04/2024 Patient is evaluated today in follow up on the medical floor. Diet has been advanced to regular and he is having bowel movement. NG tube has been removed. He is on the medical floor now. Plans for DC home tomorrow. Review of Systems Constitutional: Denied any fatigue denied any fever. Cardio vascular: denied any chest pain, palpitations Gastrointestinal: denied any nausea, vomiting, diarrhea Pulmonary: Denied any shortness of breath cough Neurologic denied any new focal deficits All inpatient medications were reviewed and appropriate changes in these medications as dictated in the interval history and assessment and plan. PHYSICAL EXAMINATION: GENERAL: The patient is alert and oriented x3, not in any acute distress. Well developed, well nourished. HEENT: Pupils are round and equally reacting to light. EOMI. No scleral icterus. No conjunctival pallor. Normocephalic, atraumatic. No pharyngeal erythema. No thyromegaly. CARDIOVASCULAR: S1 and S2 present. No murmurs, rubs, or gallops. PULMONARY: Chest is clear to auscultation, no wheezing or crackles. ABDOMEN: Soft, nontender, nondistended, normoactive bowel sounds. No palpable organomegaly. NG tube in place MUSCULOSKELETAL: No joint swelling or deformity. EXTREMITIES: No cyanosis, clubbing, or pedal edema. NEUROLOGICAL: Gross neurological examination did not reveal any focal deficits. SKIN: No rashes. Assessment Small bowel obstruction vs. Ileus resolved with conservative management. End stage renal disease maintained on hemodialysis Episode of SVT Hyperkalemia Chronic pleural effusion Hx of left kidney transplant Hepatitis B COPD with no acute exacerbation Gastroesophageal reflux disease Hypertension Hyperlipidemia Former Smoker GI prophylaxis DVT prophylaxis Full Code Plan Regular diet. IV cardizem has been discontinued patient has been placed on oral metoprolol General surgery following Nephrology following, continue hemodialysis MWF Repeat blood work in the AM. The impression and plan of care has been dictated by Shey Sue Nurse Practitioner as directed. Dr. Ashkan MD I have performed a history and physical examination and medical decision making of this patient, discussed the same with the dictator, and agree with the dictators assessment and plan as written, documented as a scribe. Based on total visit time, I have performed more than 50% of this visit. Objective - Vital Signs Vital signs: Vital Signs Temp 97.6 F 02/04/24 08:00 Pulse 62 02/04/24 12:52 Resp 18 02/04/24 12:52 BP 112/59 02/04/24 08:00 Pulse Ox 97 02/04/24 12:00 FiO2 Intake & Output 02/03/24 02/04/24 02/04/24 18:59 06:59 18:59 Intake Total 1750 280 20 Output Total 400 0 Balance 1350 280 20 Weight 79.5 kg Intake: IV 750 40 20 Invasive Line 1 20 10 Invasive Line 3 20 10 Sodium Chloride 0.9% 1, 750 000 ml @ 75 mls/hr IV . [id number] [facility] Rx#:[id number] Oral 600 240 Hemodialysis 400 Output: Urine 0 0 Hemodialysis 400 Hemodialysis Net Amount 0 Other: Voiding Method Toilet Toilet Urinal Urinal # Bowel Movements 0 - Labs CBC & Chem 7: 02/04/24 05:38 02/04/24 05:38 Labs: Abnormal Lab Results - Last 24 Hours (Table) 09/28/24 09/28/24 Range/Units 05:38 05:38 WBC 3.0 L (3.8-10.6) k/uL RBC 3.30 L (4.30-5.90) m/uL Hgb 10.3 L (13.0-17.5) gm/dL Hct 30.7 L (39.0-53.0) % Lymphocytes # 0.6 L (1.0-4.8) k/uL Sodium 132 L (137-145) mmol/L Chloride 93 L (98-107) mmol/L BUN 37 H (9-20) mg/dL Creatinine 6.31 H (0.66-1.25) mg/dL AST 15 L (17-59) U/L Total Protein 5.6 L (6.3-8.2) g/dL Albumin 3.2 L (3.5-5.0) g/dL Assessment and Plan Time with Patient: Less than 30
[2024-02-05 08:50] LABS: ALT 9 U/L (4-49); AST 15 U/L (17-59); African American GFR (CKD) 7 (>60 ml/min/1.73 sqM); Albumin 3.3 g/dL (3.5-5.0); Alkaline Phosphatase 72 U/L (38-126); Anion Gap 15 mmol/L; Basophils % (A) 0 %; Blood Urea Nitrogen 48 mg/dL (9-20); Calcium 8.5 mg/dL (8.4-10.2); Carbon Dioxide 27 mmol/L (22-30); Chloride 92 mmol/L (98-107); Eosinophils # (A) 0.1 k/uL (0-0.7); Eosinophils % (A) 2 %; Glucose 114 mg/dL (74-99); HCT 30.4 % (39.0-53.0); HGB 10.5 gm/dL (13.0-17.5); Lymphocytes # (A) 0.5 k/uL (1.0-4.8); Lymphocytes % (A) 15 %; MCH 31.8 pg (25.0-35.0); MCHC 34.6 g/dL (31.0-37.0); MCV 91.7 fL (80.0-100.0); Mean Platelet Volume 7.9; Monocytes # (A) 0.2 k/uL (0-1.0); Monocytes % (A) 7 %; Neutrophils # (A) 2.4 k/uL (1.3-7.7); Neutrophils % (A) 74 %; Non-African American GFR(CKD) 6 (>60 ml/min/1.73 sqM); Platelet Count 166 k/uL (150-450); Potassium 3.9 mmol/L (3.5-5.1); RBC 3.31 m/uL (4.30-5.90); RDW 14.7 % (11.5-15.5); Sodium 134 mmol/L (137-145); Total Bilirubin 0.7 mg/dL (0.2-1.3); Total Protein 5.8 g/dL (6.3-8.2); WBC 3.2 k/uL (3.8-10.6)
--- NOTE | 2024-02-05 11:17 | P.PN ---
Subjective Patient is seen in follow-up for end-stage renal disease. He is maintained on hemodialysis on Tuesday schedule. Tolerating regular diet. No active complaints. Vital signs are stable. General: No acute distress. HEENT: On room air. LUNGS: No audible rhonchi or wheezes. HEART: Regular rate and rhythm. ABDOMEN: Nontender. EXTREMITITES: No edema. Objective - Vital Signs Vital signs: Vital Signs Temp 97.9 F 02/05/24 08:00 Pulse 66 02/05/24 08:36 Resp 18 02/05/24 08:00 BP 127/53 02/05/24 08:00 Pulse Ox 97 02/05/24 08:00 FiO2 Intake & Output 02/04/24 02/05/24 02/05/24 18:59 06:59 18:59 Intake Total 40 40 20 Balance 40 40 20 Weight 80.6 kg Intake: IV 40 40 20 Invasive Line 1 20 20 10 Invasive Line 3 20 20 10 Other: Voiding Method Toilet Toilet Urinal Urinal # Voids 1 - Labs CBC & Chem 7: 02/05/24 08:03 02/05/24 08:03 Labs: Abnormal Lab Results - Last 24 Hours (Table) 02/05/24 02/05/24 Range/Units 08:03 08:03 WBC 3.2 L (3.8-10.6) k/uL RBC 3.31 L (4.30-5.90) m/uL Hgb 10.5 L (13.0-17.5) gm/dL Hct 30.4 L (39.0-53.0) % Lymphocytes # 0.5 L (1.0-4.8) k/uL Sodium 134 L (137-145) mmol/L Chloride 92 L (98-107) mmol/L BUN 48 H (9-20) mg/dL Creatinine 8.52 H* (0.66-1.25) mg/dL Glucose 114 H (74-99) mg/dL AST 15 L (17-59) U/L Total Protein 5.8 L (6.3-8.2) g/dL Albumin 3.3 L (3.5-5.0) g/dL Assessment and Plan Plan: Assessment: 1. End-stage renal disease maintained on hemodialysis on Tuesday schedule. 2. Abdominal pain due to ileus versus bowel obstruction. Surgery following. NG tube removed. Now on regular diet. 3. Coronary artery disease with cardiac stenting. 4. Peripheral vascular disease status post surgical invention in the past. Patient follows with vascular surgery from [facility]. 5. Chronic kidney disease mineral bone disease maintained on Sensipar and PhosLo outpatient. 6. History of hepatitis B maintained on tenofovir. 7. Hyperkalemia secondary to chronic kidney disease. Improved postdialysis. 8. SVTs status post Cardizem drip. Heart rate controlled. Plan: Hemodialysis Tuesday. Check phosphorus level.
--- NOTE | 2024-02-05 12:02 | P.PN ---
Subjective Progress Note Date: 02/05/24 The patient is a 63-year-old male, end-stage renal disease status post transplant that failed his on hemodialysis and presented with abdominal discomfort and small bowel obstruction. He was transferred to the ICU because of hypotension. He had a run of SVT and cardiology consultation was requested. He is in sinus mechanism at this time on IV Cardizem. He is hemodynamically stable. He denies any chest discomfort, dizziness or palpitations. He has no significant dyspnea. He has a history of COPD. He is followed by progressive care manager at [facility] and had a prior stenting about 5 years ago and has a history of peripheral vascular disease with femorofemoral bypass. He has no clear PND, orthopnea or peripheral edema. He cannot recall a prior documented history of malignant arrhythmia. His ejection fraction estimation is not available to me. He has an NG tube and feels better with minimal flatus but improvement in his abdominal discomfort. He has no history of smoking. He had a history of renal disease at a young age. He has no urinary output. He has a history of hyperlipidemia, he is nondiabetic. February 02: The patient feels better today, his abdominal pain is better. He denies any chest discomfort, dizziness or palpitations. He continues to be in sinus mechanism. He continues to have an NG tube. He is on IV Cardizem. He ambulated yesterday without significant difficulties. His echocardiogram showed an ejection fraction of 45 to 50% with mild aortic stenosis and mild mitral regurgitation. 02/04/2024 Patient was seen and examined resting comfortably in bed. Is overall feeling better he is tolerating a clear liquid diet. Has been initiated on metoprolol 25 mg p.o. twice daily. He underwent dialysis yesterday. Labs this morning showed potassium 4.2, BUN 37 and creatinine of 6.31. He has had no palpitations, dizziness or lightheadedness. His breathing is stable. He has had no orthopnea or PND. He has had no chest discomfort. He is eager to be di scharged home as his daughter is getting next weekend. 02/05/2024 Patient was seen and examined resting comfortably in bed. He is overall feeling well. He is tolerating his diet. He is tolerating the metoprolol 25 mg p.o. daily. Vital signs are stable. Creatinine 8.52 and is being followed by nephrology. He is maintaining sinus mechanism. Objective - Vital Signs Vital signs: Vital Signs Temp 97.9 F 02/05/24 08:00 Pulse 69 02/05/24 11:29 Resp 18 02/05/24 08:00 BP 127/53 02/05/24 08:00 Pulse Ox 97 02/05/24 08:00 FiO2 Intake & Output 02/04/24 02/05/24 02/05/24 18:59 06:59 18:59 Intake Total 40 40 20 Balance 40 40 20 Weight 80.6 kg Intake: IV 40 40 20 Invasive Line 1 20 20 10 Invasive Line 3 20 20 10 Other: Voiding Method Toilet Toilet Toilet Urinal Urinal Urinal # Voids 1 - Exam PHYSICAL EXAMINATION: Blood pressure 103/60 heart rate 72 LUNGS: Clear to auscultation HEART: Regular rate and rhythm, S1, S2. No S3. Systolic ejection murmur at the base with a holosystolic murmur at the apex, 2/6 ABDOMEN: Soft, nontender, no organomegaly, positive bowel sounds EXTREMETIES: No edema - Labs CBC & Chem 7: 02/05/24 08:03 02/05/24 08:03 Labs: Abnormal Lab Results - Last 24 Hours (Table) 02/05/24 02/05/24 Range/Units 08:03 08:03 WBC 3.2 L (3.8-10.6) k/uL RBC 3.31 L (4.30-5.90) m/uL Hgb 10.5 L (13.0-17.5) gm/dL Hct 30.4 L (39.0-53.0) % Lymphocytes # 0.5 L (1.0-4.8) k/uL Sodium 134 L (137-145) mmol/L Chloride 92 L (98-107) mmol/L BUN 48 H (9-20) mg/dL Creatinine 8.52 H* (0.66-1.25) mg/dL Glucose 114 H (74-99) mg/dL AST 15 L (17-59) U/L Total Protein 5.8 L (6.3-8.2) g/dL Albumin 3.3 L (3.5-5.0) g/dL Assessment and Plan Assessment: 1. Small bowel obstruction versus ileus, improving 2. History of CAD with no evidence of ACS 3. 1 episode of SVT, resolved 4. History of peripheral vascular disease status post femorofemoral bypass 5. End-stage renal disease, post transplant 6. Hyperlipidemia Plan: From cardiology's perspective medications were reviewed and we will continue the same. From our standpoint patient is cleared for discharge once cleared by primary and surgery. He will follow-up as an outpatient with his primary progressive care manager Dr. Porter. [employer] note has been reviewed, I agree with a documented findings and plan of care. Patient was seen and examined.
--- NOTE | 2024-02-05 14:09 | P.PN ---
Subjective Progress Note Date: 02/05/24 This is a 63-year-old male patient who got transferred to the ICU because of hypotension. The patient is admitted currently for small bowel obstruction. The patient is known to have end-stage renal disease on hemodialysis and his last hemodialysis session was yesterday. He gets dialyzed MWF. He has had previous kidney transplantation and has essentially failed. He has had previous surgeries in his abdomen for transplantation. He presented to the hospital because of abdominal pain, cramping, nausea and emesis and his last bowel movement was around 4 days ago. CAT scan of the abdomen showed dilated small bowel consistent with ileus/small bowel obstruction. General surgery is on the case. Because of ongoing discomfort, NG tube was inserted and immediately approximately 2 L of gastric material was aspirated. Subsequently patient became hypotensive. He starts cardiac blood pressure is was in the mid 70s. He got transferred to the ICU. Given half a liter of normal saline and the current blood pressure is 113/61. He is awake and alert. He is currently on room air oxygen with a pulse ox of 99%. No significant tachycardia. No reported fever. The white cell count is at 6.2 with a hemoglobin of 11.5 and a platelet count of 166. BUN 65 with a creatinine of 9.7 and the patient's potassium level is at 5.8 and a sodium level of 136. Amylase and lipase are within normal limits. LFTs are within normal limits. CAT scan of the abdomen also showed a loculated pleural effusion in the left lung base above the left hemidiaphragm with a calcified rim which is a sequelae of previous pneumonia/parapneumonic effusion. He has another calcified rim collection in the mid pelvis. Denies having any cough or sputum production. No significant respiratory distress. (Done 4 hours during the 02/02/2024, the patient is being seen for a follow-up. NG tube is still in place and the patient denies having any significant nausea or vomiting and no significant abdominal pains on today's evaluation. The patient has produced approximately 3.3 L of gastric output since insertion of the NG tube. Currently, IV fluids are at KVO. The patient underwent hemodialysis yesterday with ultrafiltration of 500 cc of fluids. No fever. No chills. No tachycardia. He did encounter a run of SVT yesterday and based on that, the patient was started on a Cardizem drip which is running at 10 mg an hour. Currently, he is in normal sinus rhythm. Cardiology has been consulted. The white cell count is at 5 with a hemoglobin 11.3 and a platelet count of 153. Sodium is at 136, potassium is at 5.3, BUN is 49 with a creatinine of 7.9 and the patient serum bicarb is at 23. LFTs are all within normal limits. Amylase and lipase are also within normal limits. A follow-up small bowel x-ray that was done today showed limited examination with no contrast seen in the colon. Bowel obstruction is likely still present. The patient has no altered mentation. Communicating. Denies having any specific complaints.Echocardiogram was completed yesterday and the patient was found to have LV ejection fraction of 45 to 50%. There was also mild increase in the septal wall thickness. Increase in the left ventricular volume systolic. No significant valvular abnormalities other than some mild degree of aortic stenosis. On 02/03/2024, the patient is being seen for a follow-up. The patient is doing well with no specific complaints. No nausea vomiting or abdominal pain. The patient is passing flatus. NG tube has been clamped. The patient is also taking some popsicles and ice chips. Otherwise, hemodynamically stable. No angina or palpitation. No shortness of breath. No chest pain. The white cell count is at 4.8 with hemoglobin of 11.3 and a platelet count of 173. BUN 63 with a creatinine of 9.7 and the patient's potassium level is at 5.7. The patient is going to undergo another session of hemodialysis today. No other significant events overnight. Respiratory status is stable and the patient is currently on room air oxygen. No other significant events overnight. First t bernard of the abdomen was done today and it showed an unremarkable abdomen. Aneurysmal dilatation of the right common iliac artery was noted. On 02/04/2024, seen the patient for a follow-up. Patient is able to tolerate clear liquid diet. Denies having any nausea or vomiting or chest pain or abdominal pain. He has a history of renal disease and is currently on hemodialysis. On today's blood work, sodium is at 132, BUN 37 with a creatinine of 6.3. White cell count is at 3 with a heme of 7.3 and a platelet count of 166. He is afebrile. He is hemodynamically stable. He is ambulating. Using the incentive spirometer. No other significant events overnight. The patient got transferred out of the intensive care unit today. On 02/05/2024, the patient is being seen for a follow-up. NG tube has been removed. He did encounter some abdominal discomfort earlier this morning. I think he was quite aggressive in his food intake. I recommended him going back into clear liquid or full liquid diet for now. The patient has no emesis for now. WBC count is at 3.2, he was 10.5 and a platelet count of 166. BUN is 48 with a creatinine of 8.5 and his sodium levels at 134. Nephrology on the case. The patient has end-stage renal disease and the patient has been maintained on hemodialysis MW and his last hemodialysis session was on Tuesday and his upcoming hemodialysis session will be on Tuesday. Objective - Vital Signs Vital signs: Vital Signs Temp 97.9 F 02/05/24 08:00 Pulse 66 02/05/24 08:36 Resp 18 02/05/24 08:00 BP 127/53 02/05/24 08:00 Pulse Ox 97 02/05/24 08:00 FiO2 Intake & Output 02/04/24 02/05/24 02/05/24 18:59 06:59 18:59 Intake Total 40 40 20 Balance 40 40 20 Weight 80.6 kg Intake: IV 40 40 20 Invasive Line 1 20 20 10 Invasive Line 3 20 20 10 Other: Voiding Method Toilet Toilet Urinal Urinal # Voids 1 - Exam - Constitutional General appearance: no acute distress, NG tube removed - EENT Eyes: EOMI Ears: negative: bulging, bullous, dull, erythema, fluid, myringotomy tube, obst ructed by cerumen, scarring, unable to vistualize, other - Neck Neck: no lymphadenopathy Carotids: negative: upstroke normal, upstroke delayed, upstroke diminished, upstroke bounding, bruit absent, bruit present Thyroid: negative: normal size, enlarged, firm, nodule - Respiratory Respiratory: negative: CTA, diminished, dullness, rales, rhonchi, wheezing, prolonged expiration, prolonged inspiration, other - Cardiovascular Rhythm: regular Heart sounds: abnormal: S1, S2 - Gastrointestinal General gastrointestinal: Positive bowel sounds are present, abdomen is Soft, well-healed surgical scarring, nondistended, no rebound or guarding, tenderness to palpation in bilateral lower quadrants - Integumentary Integumentary: normal, normal turgor - Neurologic Neurologic: CNII-XII intact - Musculoskeletal Musculoskeletal: gait normal - Psychiatric Psychiatric: A&O x's 3 - Labs CBC & Chem 7: 02/05/24 08:03 02/05/24 08:03 Labs: Abnormal Lab Results - Last 24 Hours (Table) 02/05/24 02/05/24 Range/Units 08:03 08:03 WBC 3.2 L (3.8-10.6) k/uL RBC 3.31 L (4.30-5.90) m/uL Hgb 10.5 L (13.0-17.5) gm/dL Hct 30.4 L (39.0-53.0) % Lymphocytes # 0.5 L (1.0-4.8) k/uL Sodium 134 L (137-145) mmol/L Chloride 92 L (98-107) mmol/L BUN 48 H (9-20) mg/dL Creatinine 8.52 H* (0.66-1.25) mg/dL Glucose 114 H (74-99) mg/dL AST 15 L (17-59) U/L Total Protein 5.8 L (6.3-8.2) g/dL Albumin 3.3 L (3.5-5.0) g/dL Assessment and Plan Plan: Small bowel obstruction/ileus, recovered and the NG tube has been removed and the patient is tolerating diet. Positive bowel sounds. No significant abdominal distention. Limited abdominal discomfort this morning. Abdomen remains quite decompressed. Hypovolemic shock with secondary hypotension, responded to IV fluids. The patient is currently normotensive End-stage renal disease on hemodialysis 3 times a week, MWF, underwent a short session of hemodialysis on 02/01/2024 with a ultrafiltration of 500 cc. Mild hyperkalemia related to end-stage renal disease History of kidney transplantation x 2 History of hepatitis B Hypertension, history of Hyperlipidemia COPD Chronic pleural fluid and mid abdominal fluid collection with a calcified rim. The first is most likely a sequela of a previous pneumonia and parapneumonic effusion. The second is most likely related to previous abdominal surgeries. Those are benign findings SVT, currently back into normal sinus rhythm and the patient is currently on Cardizem drip at 10 mg an hour. CHF with mild impairment of LV function and mild aortic stenosis. Plan Advance diet gradually as tolerated. NG tube has been removed Hemodialysis to be done on Tuesday Nephrology is on the case Will continue to follow The patient will be transferred out of the intensive care unit Encourage mobility Room air oxygen
[2024-02-05 14:30] VITALS: BP 124/64; TEMP 98.3
[2024-02-05 16:03] VITALS: PULSE 65
--- NOTE | 2024-02-07 21:54 | P.DS ---
Providers Date of admission: 01/31/24 18:04 Attending physician: Mathieu Tatum MD Consults: 01/31/24 18:21 Consult Physician Routine Consulting Provider: Camilo Reddy Consult Reason/Comments: ESRD on hemodialysis Do you want consulting provider notified?: Yes, Notify in am Consult Physician Routine Consulting Provider: Roberto Solares Consult Reason/Comments: SBO vs ileus, abdominal pain Do you want consulting provider notified?: Yes, Notify in am 02/01/24 15:15 Consult Physician Stat Consulting Provider: Cleve Briceno Consult Reason/Comments: hypotension, need ICU monitoring, poss pressor, sbo Do you want consulting provider notified?: Yes 02/01/24 22:25 Consult Physician Stat Consulting Provider: Miguel Lei Consult Reason/Comments: SVT Do you want consulting provider notified?: Already Contacted Primary care physician: Clara Farmer [facility] Course: Final Diagnosis Small bowel obstruction vs. Ileus resolved with conservative management. End stage renal disease maintained on hemodialysis Episode of SVT Hyperkalemia Chronic pleural effusion Hx of left kidney transplant Hepatitis B COPD with no acute exacerbation Gastroesophageal reflux disease Hypertension Hyperlipidemia Former Smoker Discharge Disposition Patient is stable for discharge home. Patient to follow up with general surgery in 1 week. Patient to continue usual hemodialysis session MWF. He will see his PCP Dr. Farmer in 1 to 2 days. Repeat BMP magnesium tuesday hemodialysis. Hospital Course This is a 63-year-old male patient with medical history of end-stage renal disease on hemodialysis and his last hemodialysis session was yesterday. He gets dialyzed MWF. He has had previous kidney transplantation and has essentially failed. He has had previous surgeries in his abdomen for transplantation. He presented to the hospital because of abdominal pain, cramping, nausea and emesis and his last bowel movement was around 4 days ago. CAT scan of the abdomen showed dilated small bowel consistent with ileus/small bowel obstruction. The patient is admitted currently for small bowel obstruction. General surgery was consulted. Patient was moved to the ICU due to episode of hypotension requiring fluid bolus and close monitoring. He is undergoing hemodialysis. NG tube was placed for decompression and conservative management o the bowel obstruction. Blood pressure improved he was moved out of the ICU. Diet advanced, NG tube was removed. He is up ambulating without difficulty. No chest pain, no shortness of breath and essentially no abdominal pain. He has been cleared for discharge. He will continue same hemodialysis MWF on discharge. Please see medication reconciliation for a list of current medications. Thank you for allowing us to participate in the care of this patient. The impression and plan of care has been dictated by Shey Sue, Nurse Practitioner as directed. Dr. Ashkan MD I have performed a history and physical examination and medical decision making of this patient, discussed the same with the dictator, and agree with the dictators assessment and plan as written, documented as a scribe. Based on total visit time, I have performed more than 50% of this visit. Patient Condition at Discharge: Stable Plan - Discharge Summary Discharge Rx Participant: No New Discharge Prescriptions: New Metoprolol Tartrate [Lopressor] 25 mg PO BID #60 tab Midodrine [ProAmatine] 10 mg PO AC-TID #90 tab Continue Omeprazole 20 mg PO DAILY Aspirin 81 mg PO DAILY Cinacalcet HCl [Sensipar] 60 mg PO W/SUPPER Ondansetron Odt [Zofran ODT] 4 mg PO TID PRN PRN Reason: Nausea Vit B Comp No.3/Folic/C/Biotin [Blanca-Ros Rx Tablet] 1 tab PO DAILY Calcium Acetate 668mg 2,004 mg PO TID-W/MEALS clonazePAM [KlonoPIN ODT] 0.25 mg PO HS PRN PRN Reason: Anxiety Pravastatin Sodium [Pravachol] 40 mg PO HS Tiotropium 2.5 Mcg/Puff [Spiriva Respimat 2.5 Mcg] 2 puff INHALATION RT-DAILY Albuterol Nebulized [Ventolin Nebulized] 2.5 mg INHALATION RT-QID Albuterol Inhaler [Ventolin Hfa Inhaler] 2 puff INHALATION RT-Q4H PRN PRN Reason: Shortness Of Breath Tenofovir Disoproxil Fumarate [Viread] 300 mg PO FR Discharge Medication List Aspirin 81 mg PO DAILY 08/30/16 [History] Omeprazole 20 mg PO DAILY 08/30/16 [History] Albuterol Inhaler [Ventolin Hfa Inhaler] 2 puff INHALATION RT-Q4H PRN 01/31/24 [History] Albuterol Nebulized [Ventolin Nebulized] 2.5 mg INHALATION RT-QID 01/31/24 [History] Calcium Acetate 668mg 2,004 mg PO TID-W/MEALS 01/31/24 [History] Cinacalcet HCl [Sensipar] 60 mg PO W/SUPPER 01/31/24 [History] Ondansetron Odt [Zofran ODT] 4 mg PO TID PRN 01/31/24 [History] Pravastatin Sodium [Pravachol] 40 mg PO HS 01/31/24 [History] Tenofovir Disoproxil Fumarate [Viread] 300 mg PO FR 01/31/24 [History] Tiotropium 2.5 Mcg/Puff [Spiriva Respimat 2.5 Mcg] 2 puff INHALATION RT-DAILY 01/31/24 [History] Vit B Comp No.3/Folic/C/Biotin [Blanca-Ros Rx Tablet] 1 tab PO DAILY 01/31/24 [History] clonazePAM [KlonoPIN ODT] 0.25 mg PO HS PRN 01/31/24 [History] Metoprolol Tartrate [Lopressor] 25 mg PO BID #60 tab 02/05/24 [Rx] Midodrine [ProAmatine] 10 mg PO AC-TID #90 tab 02/05/24 [Rx] Follow up Appointment(s)/Referral(s): Lakisha Fam MD [STAFF PHYSICIAN] - 1 Week (Follow up with nephrology and continue dialysis as you are typically scheduled.) Dirk Bravo DO [Doctor of Osteopathic Medicine] - 1 Week (Please follow up with Dr. Bravo, the surgeon, in about a week. ) Clara Farmer [Primary Care Provider] - 1-2 days (Please schedule a hospital follow-up with your primary care provider ) Ambulatory/Diagnostic Orders: Basic Metabolic Panel [LAB.AMB] Time Frame: 3 Days, Location: None Selected Magnesium [LAB.AMB] Location: None Selected Patient Instructions/Handouts: Bowel Obstruction (DC) Activity/Diet/Wound Care/Special Instructions: Diet as tolerated Continue same hemodialysis schedule MWF Discharge Disposition: HOME SELF-CARE
--- NOTE | 2024-02-20 19:54 | CDI ---
Documentation Clarification Form Date: 02/20/2024 07:44:46 PM From: Carol Guerrero Phone: Admit Date: 01/31/2024 06:04:00 PM Patient Name: Kota Goddard Visit Number: [id number] Discharge Date: 02/05/2024 04:22:00 PM ATTENTION: The Clinical Documentation Specialists (CDI) and [facility] Coding Staff appreciate your assistance in clarifying documentation. Please respond to the clarification below the line at the bottom and electronically sign. The CDI & [facility] Coding staff will review the response and follow-up if needed. Please note: Queries are made part of the Legal Health Record. If you have any questions, please contact the author of this message via ITS. Doctor/Provider: Camilo Reddy There is documentation of chronic kidney disease mineral bone disease per Nephrology Consult Note and Progress Notes. Additional clarification is requested. History/Risk Factors: 63yo M, failed kidney transplantESRD on HD, HTN, HLD, ileusversusbowel obstruction, CAD, NIDDMII w PVD, CKD mineral bone disease, hepatitis B, hyperkalemia, Clinical Indicators: eGFR: 7-9 BUN 37 Creatinine 7.16 Treatment: maintained on Sensipar and PhosLo outpatient Can you please clarify chronic kidney disease mineral bone disease? [ ] Renal Osteodystrophy [ x] Chronic kidney disease mineral bone disease, NOS [ ] Other, please specify [ ] Unable to determine (Template Last Revised: July 2020) MTDD
== END 2024-02-05 16:22 | disposition home or self-care (01) | DRG 388 ==
LOC: EC 13:23 → 4SSUR 18:04 → 2SICU 02-01 15:30 → 3SCARD 02-04 07:48
PROVIDERS: ADMIT Internal Medicine; ATTEND Internal Medicine
PROC: 0D9670Z Drainage of Stomach with Drainage Device, Via Natural or Artificial Opening (ICD-10-PCS; principal; 2024-02-01)
PROC: 5A1D70Z Performance of Urinary Filtration, Intermittent, Less than 6 Hours Per Day (ICD-10-PCS; 2024-02-01)
DX: K56.609 Unspecified intestinal obstruction, unspecified as to partial versus complete obstruction (principal); N18.6 End stage renal disease; T86.12 Kidney transplant failure; I12.0 Hypertensive chronic kidney disease with stage 5 chronic kidney disease or end stage renal disease; J91.8 Pleural effusion in other conditions classified elsewhere; B19.10 Unspecified viral hepatitis B without hepatic coma; I47.10 Supraventricular tachycardia, unspecified; I72.3 Aneurysm of iliac artery; E11.22 Type 2 diabetes mellitus with diabetic chronic kidney disease; E11.40 Type 2 diabetes mellitus with diabetic neuropathy, unspecified; E11.51 Type 2 diabetes mellitus with diabetic peripheral angiopathy without gangrene; K56.7 Ileus, unspecified; Z99.2 Dependence on renal dialysis; J44.9 Chronic obstructive pulmonary disease, unspecified; Z95.820 Peripheral vascular angioplasty status with implants and grafts; I95.89 Other hypotension; E78.5 Hyperlipidemia, unspecified; I08.0 Rheumatic disorders of both mitral and aortic valves; I25.10 Atherosclerotic heart disease of native coronary artery without angina pectoris; E87.5 Hyperkalemia; K21.9 Gastro-esophageal reflux disease without esophagitis; Z79.82 Long term (current) use of aspirin; Z79.51 Long term (current) use of inhaled steroids; Z87.891 Personal history of nicotine dependence; Z90.5 Acquired absence of kidney; Z95.5 Presence of coronary angioplasty implant and graft; Z79.899 Other long term (current) drug therapy; M89.8X9 Other specified disorders of bone, unspecified site
CPT/HCPCS: 36415; 74019; 74176; 74250; 80048; 80053; 82150; 83605; 83690; 83735; 84132; 85025; 90935; 93306; 94640; 96361; 96374; 96375; 99285